=== PATIENT | female | born 1950 | race Caucasian/White ===

== ENCOUNTER 2019-12-09 11:09 | Observation (INO) ==
--- NOTE | 2019-11-13 15:05 | PAT Medication Instructions ---
Medication Instructions Date of Service November 13, 2019 Home Medications cholecalciferol (vitamin D3) 250 mcg PO QAM lactobacillus combination no.4 [Probiotic] 3,000 mmu cells PO HS multivitamin 1 cap PO QAM omega 7-xxv-tnd-fish oil [Fish Oil] 1 cap PO QAM oregano oil 1,500 mg PO QAM STOP taking 2 weeks before surgery If surgery is within 2 weeks, stop taking as soon as possible. omega 1-pwl-lpc-fish oil [Fish Oil] 1 cap PO QAM oregano oil 1,500 mg PO QAM DO NOT take the morning of surgery cholecalciferol (vitamin D3) 250 mcg PO QAM lactobacillus combination no.4 [Probiotic] 3,000 mmu cells PO HS multivitamin 1 cap PO QAM Other Notes If you have any questions please call us at [phone] or [phone] or [phone] or [phone]
--- NOTE | 2019-11-14 08:16 | History & Physical Report ---
Date of Service November 14, 2019 date of surgery: 12-09-19 Procedure: Right total knee replacement Assessment & Plan (1) Arthritis of right knee: Risks and benefits of procedure discussed in detail today, patient would like to proceed with a Right total knee replacement at [facility] as scheduled. will obtain medical clearance from Dr Hoff prior to surgery as well as obtain PATs at [facility]. Will place on ASA 81mg po bid x 1 month post op, f/u 2 weeks post op for routine post-operative care and x-ray, sooner if having any problems. will make arrangements for HHPT at the time of discharge. At this point in time, has failed conservative measures and would like to proceed with surgical intervention. The risks and benefits have been discussed including, but not limited to, risk of infection, nerve injury, stiffness, loss of motion, failure to improve, etc. Reasonable outcomes and options of treatment were discussed. An explanation of appropriate alternatives to the procedure that may be advantageous were discussed and their risks and benefits, as well as the risks and benefits of not proceeding with treatment. I offered to answer any additional inquiries concerning the treatment involved. All the patient's questions were answered. The patient is agreeable, understanding of the treatment plan and alternatives, and wishes to proceed with the treatment plan. History of Present Illness Chief Complaint: Right knee pain Primary Care Provider: Silas Hoff Ms Shannon is a 69 year old female who complains of right knee pain, presents for pre op eval prior to a right total knee replacement at [facility]. She presents with pain and stiffness on the right side. She states that the symptoms have been chronic non-traumatic. Currently the patient states that the symptoms are moderate-severe and is described as aching, sharp and throbbing. The symptoms are aggravated by ascending stairs, daily activities, descending stairs, driving, exercise, first steps while awake, jumping, kneeling, movement, repetitive activities, sleeping on the affected side, squatting, standing, walking and weight bearing. In addition to right knee pain the patient is also experiencing decreased mobility, difficulty bending, crepitus, difficulty going to sleep, instability, limping, nighttime awakening, pain, stiffness, tenderness and weakness. The patient has had a previous x-ray. Prior NSAIDs include ibuprofen. She has been treated with a corticosteroid injection on the right side. Allergies Allergy/AdvReac Type Severity Reaction Status Date / Time codeine Allergy Intermediate vomiting Verified 11/07/19 10:57 Sulfa (Sulfonamide Allergy Intermediate hives Verified 11/07/19 10:57 Antibiotics) Home Medications Home Medications Medication Instructions Recorded Confirmed Type cholecalciferol (vitamin D3) 250 mcg PO QAM 11/07/19 11/07/19 History [Vitamin D3] lactobacillus combination no.4 3,000 mmu cells PO HS 11/07/19 11/07/19 History [Probiotic] multivitamin 1 cap PO QAM 11/07/19 11/07/19 History omega 8-mfr-kxm-fish oil [Fish Oil] 1 cap PO QAM 11/07/19 11/07/19 History oregano oil 1,500 mg PO QAM 11/07/19 11/07/19 History Past Med/Surg History Medical History Chronic back pain Lyme disease Osteoarthritis PONV (postoperative nausea and vomiting) Pre-diabetes weight loss and diet and no meds Surgical History History of open reduction and internal fixation (ORIF) procedure left elbow History of total left knee replacement Hx of appendectomy Hx of hysterectomy Hx of tonsillectomy Social History Smoking Status: Never smoker Second Hand Exposure: No; Do You Dip or Chew Tobacco: No; Tobacco Cessation Education Requested by Patient: No Hx Alcohol Use: No Hx Substance Use: No Preferred Language: Syrian Communication Ability: Effective Theater Projectionist Required: No Beliefs That Will Affect Care: None Current Living Situation: Spouse Other Information That Helps Us Care for You: No Feels Safe at Home: Yes Safety Concerns: Feels Safe At This Time Review of Systems Review of Systems: All systems reviewed & are unremarkable except as noted in HPI & below Constitutional: no fever, no chills and no sweats Respiratory: no cough and no dyspnea Cardiovascular: no chest pain, no dyspnea and no orthopnea Gastrointestinal: no abdominal pain, no nausea and no vomiting Musculoskeletal: as per Subjective / HPI Physical Exam Physical Exam: Ht: 5ft 1in WT: 80.7kg BP: 138/86 Constitutional: WD/WN, vitals as above no acute distress Respiratory: normal respiratory effort, lungs clear to auscultation no respiratory distress, no labored breathing and does not use accessory muscles Cardiovascular: RRR, no murmur, no edema Gastrointestinal (Abdomen): normal bowel sounds, soft, nontender, no hepatosplenomegaly Musculoskeletal: Knee: + knee abnormal to inspection (Right knee- ), + effusion (+1 effusion), + limited ROM of knee (ROM 0/3/110), + knee ROM with crepitation, + joint line tenderness (medial joint line) and + Michael's sign positive; no deformity, no skin erythema, no ecchymosis, no valgus laxity, no varus laxity, anterior drawer test negative, Israel's sign negative and pivot shift test negative Results & Data Results & Data ([facility]) Diagnostic Findings Right Knee X-ray: Right knee series showing advanced degenerative changes to the right knee, narrowing of the medial compartment and patello-femoral joint with patellar spurring noted, findings showing joint space narrowing of the medial compartment and patello-femoral joint, osteophyte formation and subchondral sclerosis noted. overall varus alignment. no acute bony pathology noted.
--- NOTE | 2019-11-14 13:06 | Anesthesiology Consultation ---
Date of Service November 14, 2019 Assessment & Plan (1) Encounter for pre-operative examination: COVID Status: As of 11/13 assessment, patient denies travel to endemic area, known exposure/sick contacts, or symptoms of COVID19. Patient instructed that they and their household members must follow strict social distancing guidelines, wear a mask in public and avoid travel for 14 days prior to surgery. Preoperative COVID19 testing to be completed prior to surgery per surgeon's arrangements. Patient made aware to self-isolate as much as possible between COVID testing and surgery. BSG AM DOS Chart Review Chart Review: Acceptable Risk for Surgery (pending surgeon-ordered PCP clearance) and Patient seen in Pre Admission Testing Teaching & Discussion Instructed NPO after midnight before surgery, except medications with 15 cc of water. Medication instructions provided according to the PAT guidelines. History Surgery Operation Date: 12/09/19 11:55 Proposed Procedures p Right Total Knee Arthroplasty - Lamberto Roman DO Height/Weight Height: 5 ft 1 in Weight: 81.4 kg Allergies Allergy/AdvReac Type Severity Reaction Status Date / Time codeine Allergy Intermediate vomiting Verified 11/07/19 10:57 Sulfa (Sulfonamide Allergy Intermediate hives Verified 11/07/19 10:57 Antibiotics) Medications Home Medications Medication Instructions Recorded Confirmed Last Taken cholecalciferol (vitamin D3) 250 mcg PO QAM 11/07/19 11/07/19 Unknown [Vitamin D3] lactobacillus combination no.4 3,000 mmu cells PO HS 11/07/19 11/07/19 Unknown [Probiotic] multivitamin 1 cap PO QAM 11/07/19 11/07/19 Unknown omega 6-gkb-jty-fish oil [Fish Oil] 1 cap PO QAM 11/07/19 11/07/19 Unknown oregano oil 1,500 mg PO QAM 11/07/19 11/07/19 Unknown Past Medical History Medical History Chronic back pain Lyme disease Osteoarthritis PONV (postoperative nausea and vomiting) Pre-diabetes weight loss and diet and no meds; A1C up to 7.3% on pre op labs -- forwarded to PCP for follow-up. Exercise / Class Metabolic Activity II 4-5 Yardwork/Stairs/Walk up hill (Denies Cp or SOB with 1 FOS) Past Surgical History Surgical History History of open reduction and internal fixation (ORIF) procedure left elbow History of total left knee replacement Hx of appendectomy Hx of hysterectomy Hx of tonsillectomy Past Anesthesia History No Hx of Anesthesia Complications and No Family Hx of Anesthesia Complications History of PONV No Hx of Motion Sickness and History of PONV Social History Smoking Status: Never smoker Do You Dip or Chew Tobacco: No Hx Alcohol Use: No Hx Substance Use: No substance use type: does not use Review of Systems Pt denies any recent chest pain, shortness of breath, palpitations, cough, fever, URI, or uncontrolled acid reflux. Physical Exam Vital Signs BP: 117/77 P: 93bpm SPO2: 94% RA T: 98.2 F R: 16 ENMT Mouth: + dental restorations (crown rear L lower molar); no chipped teeth and no loose teeth Thyromental Distance: > or= 3.5 Finger Breadths (3.5) Mallampati Class: I Neck normal visual inspection; neck extension not limited Respiratory normal respiratory effort Auscultation: lungs clear to auscultation bilaterally Cardiovascular Rate/Rhythm: regular rate (borderline tachy) and regular rhythm Heart Sounds: no murmur Vessels: no carotid bruit Extremities: no edema Testing Laboratory Results 11/14/19 13:19 11/14/19 13:19 PT 10.8 Seconds (9.0-12.0) 11/14/19 13:19 INR 1.0 (0.9-1.1) 11/14/19 13:19 APTT 25.9 Seconds (21.0-31.0) 11/14/19 13:19 Hemoglobin A1c 7.3 % (4.5-5.6) H 11/14/19 13:19 Urine Color Yellow 11/14/19 Unknown Urine Appearance Clear (Clear) 11/14/19 Unknown Urine pH 5.0 (4.5-7.5) 11/14/19 Unknown Ur Specific Mason 1.018 (1.000-1.030) 11/14/19 Unknown Urine Protein Negative (Negative) 11/14/19 Unknown Urine Glucose (UA) Negative (Negative) 11/14/19 Unknown Urine Ketones Negative (Negative) 11/14/19 Unknown Urine Nitrite Negative (Negative) 11/14/19 Unknown Ur Leukocyte Esterase 1+ (Negative) H 11/14/19 Unknown Urine WBC (Auto) 10-30 /hpf (0-5) H 11/14/19 Unknown Urine RBC (Auto) 0-4 /hpf (0-4) 11/14/19 Unknown U Hyaline Cast (Auto) 0 /lpf (0-5) 11/14/19 Unknown U Epithel Cells (Auto) 0-5 /lpf (0-5) 11/14/19 Unknown Urine Bacteria (Auto) 3+ (Negative) H 11/14/19 Unknown Blood Type A Positive 11/14/19 13:19 Antibody Screen NEGATIVE 11/14/19 13:19 11/14/19 Unknown Urine Culture - Final Urine,Clean Catch Citrobacter koseri Citrobacter koseri#2 *Surgeon's office flagged re: uncontrolled glucose and + UA Electrocardiogram Date: 11/14/19 Findings: + NSR @ (88bpm) NSTWA. Compared to EKG from 06/25/15, NSTWA now evident in inferior leads, QT has lengthened. Chest X-Ray Date: 11/14/19 Findings: + NAD
--- NOTE | 2019-11-14 13:42 | XRay Report ---
XR chest Pre-admission PA/Lat HISTORY: Preop. COMPARISON: Chest 06/25/2015. FINDINGS: The lungs are clear. Cardiac silhouette is normal in size. No pleural effusions. No pneumot horax. IMPRESSION: No acute process. ACT 112: Negative or not required by law. Electronically signed by: Fredy Martin M.D. 11/14/2019 1:40 PM
[2019-11-14 15:01] LABS: Basophils # (auto) 0.04 K/uL (0-0.2); Basophils % (auto) 0.5 %; Eosinophils # (auto) 0.31 K/uL (0-0.5); Eosinophils % (auto) 3.6 %; Hematocrit (blood only) 42.5 % (37-47); Hemoglobin 14.4 g/dL (12.0-16.0); Immature Granulocytes # (auto) 0.04 K/uL (0.00-0.02); Immature Granulocytes % (auto) 0.5 %; Lymphocytes # (auto) 2.54 K/uL (1.2-3.4); Lymphocytes % (auto) 29.6 %; Mean Corpuscular Hemoglobin 29.3 pg (25-34); Mean Corpuscular Hgb Conc 33.9 g/dL (32-36); Mean Corpuscular Volume 86.4 fL (80-100); Mean Platelet Volume 11.1 fL (7.4-10.4); Monocytes # (auto) 0.25 K/uL (0.11-0.59); Monocytes % (auto) 2.9 %; Neutrophils # (auto) 5.39 K/uL (1.4-6.5); Neutrophils % (auto) 62.9 %; Platelet Count 320 K/uL (130-400); RDW Coefficient of Variation 13.9 % (11.5-14.5); RDW Standard Deviation 43.9 fL (36.4-46.3); Red Blood Count 4.92 M/uL (4.2-5.4); White Blood Count 8.57 K/uL (4.8-10.8)
[2019-11-14 15:08] LABS: BUN Creatinine Ratio 16.6 (10-20); Calcium 9.3 mg/dl (8.5-10.1); Creatinine Clr Calc Pharmacy 48.9 ml/min; Est GFR (African American) 64.1; Est GFR (Non-African American) 55.3; Potassium 3.9 mmol/L (3.5-5.1)
[2019-11-14 15:11] LABS: Partial Thromboplastin Ratio 0.9; Partial Thromboplastin Time 25.9 Seconds (21.0-31.0); Prothrombin Time 10.8 Seconds (9.0-12.0)
[2019-11-14 15:12] LABS: Appearance Urine Clear (Clear); Bacteria Urine Automated 3+ (Negative); Bilirubin Urine Negative (Negative); Blood Urine Negative (Negative); Cast Urine Automated 0 /lpf (0-5); Color Urine Yellow; Epithelial Cell Urine Auto 0-5 /lpf (0-5); Glucose Urine UA Negative (Negative); Ketones Urine Negative (Negative); Leukocyte Esterase Urine 1+ (Negative); Nitrite Urine Negative (Negative); Protein Urine Negative (Negative); RBC Urine Automated 0-4 /hpf (0-4); Specific Gravity Urine 1.018 (1.000-1.030); Urobilinogen Urine Negative (Negative)
--- NOTE | 2019-11-14 16:12 | Electrocardiogram Report ---
Test Reason : Blood Pressure : / mmHG Vent. Rate : 088 BPM Atrial Rate : 088 BPM P-R Int : 178 ms QRS Dur : 076 ms QT Int : 448 ms P-R-T Axes : 067 083 078 degrees QTc Int : 542 ms Normal sinus rhythm Nonspecific T wave abnormality Abnormal ECG When compared with ECG of 25-JUN-2015 12:02, Nonspecific T wave abnormality now evident in Inferior leads QT has lengthened Confirmed by Tyson Aguirre ([id number]) on 11/14/2019 4:12:02 PM Referred By: Lamberto Roman Confirmed By:Tyson Aguirre
[2019-11-15 05:49] LABS: Estimated Average Glucose 163 mg/dl; Hemoglobin A1C 7.3 % (4.5-5.6)
[~2019-12-09 11:09] MED LIST: ACETAMINOPHEN 500 MG TAB PO SCH; BUPIVACAINE 0.5 % 5 MG/1 ML PF 10ML VIAL ONE; CEFAZOLIN 2000MG 2,000 MG/15 ML SYR IV SCH; FAMOTIDINE 20 MG TAB PO SCH; GABAPENTIN 300 MG CAP PO SCH; METOCLOPRAMIDE HCL 10 MG TABLET PO SCH; ROPIVACAINE 0.5% HCL/PF 150 MG, BUPIVACAINE 0.5% MPF 30 ML, EPINEPHrine 30MG/30ML (OR U... INSTIL SCH; TRANEXAMIC ACID 1,000 MG **IV Intra-op IV SCH; TRANEXAMIC ACID 1,000 MG **IV Pre-op IV SCH; dexAMETHasone 4 MG TAB PO SCH
[2019-12-09] MEDS ORDERED: ONDANSETRON INJ 2 MG/ML 2 ML VIAL ONE (11:18)
[2019-12-09] MEDS ORDERED: PROPOFOL IV EMULSION 10 MG/ML 20 ML VIAL IV ONE (11:18)
[2019-12-09] MEDS ORDERED: LIDOCAINE HCL 2% 2 ML VIAL/AMP(20MG/ML) INFIL ONE (11:18)
[2019-12-09] MEDS ORDERED: fentaNYL citrate 100 MCG/2 ML VIAL ONE ×2 (11:18→13:40)
[2019-12-09] MEDS ORDERED: MIDAZOLAM HCL 1 MG/ML 2ML VIAL ONE (11:18)
--- NOTE | 2019-12-09 11:44 | History & Physical Bridge Note ---
Date of Service December 09, 2019 History & Physical Bridge Note I have examined the patient, reviewed the History & Physical and in the interval since the performance of the History & Physical I have noted the following changes of clinical significance: no changes noted
[2019-12-09] MEDS ORDERED: ORTHO JOINT ANESTHETIC ONE (11:49)
[2019-12-09] MEDS ORDERED: BACITRACIN INJ 50,000 UNIT VIAL ONE (11:49)
[2019-12-09] MEDS ORDERED: fentaNYL citrate 100 MCG/2 ML VIAL IV PRN (12:23)
[2019-12-09] MEDS ORDERED: ONDANSETRON INJ 2 MG/ML 2 ML VIAL IV PRN ×2 (12:23→17:04)
[2019-12-09] MEDS ORDERED: ATROPINE SULFATE 0.1 MG/ML 10ML SYR IV PRN (12:23)
[2019-12-09] MEDS ORDERED: ePHEDrine sulfate 50 MG/ML AMP IV PRN (12:23)
[2019-12-09] MEDS: LR 500ML BOLUS, THEN 15ML/HR IV SCH (12:29)
--- NOTE | 2019-12-09 14:04 | Operative Report ---
Post Operative Report Pre & Post Diagnosis Operation Date: 12/09/19 12:45 Pre-Op Diagnosis: Osteoarthritis of Right Knee Post-Op Diagnosis: Osteoarthritis of Right Knee I identified the patient and participated in the time-out.: Yes Procedure Operation Date: 12/09/19 12:45 Actual Procedures p Right Total Knee Arthroplasty(Right) utilizing [employer] journey 2 patient matched total knee arthroplasty size 4 femur to tibia 13 polyethylene 29 oval patella- Lamberto Roman DO Surgeon Lamberto Roman DO Meal Grinder Tender JOE Story Estimated Blood Loss 5 Findings Consistent with Post-Op Diagnosis Patient presents with severe end-stage tricompartmental degenerative joint disease subchondral cystic changes marginal osteophytes varus alignment with eburnated [id number] moderate to large effusion Specimens Bone and cartilage Drains Medium bore Hemovac Anesthesia Type MAC Spinal Regional Complications none Disposition Accompanied Patient To Recovery: No Disposition: Recovery Room Indications Patient presents for right total knee arthroplasty after failed attempted conservative management clinic physical therapy anti-inflammatories relative rest activity modification corticosteroid injection Visco supplementation the above intraoperative findings are noted time surgery Description of Procedure After proper prepping and draping of the Right lower extremity anterior midline incision was made over the region of the extensor extensor mechanism after meticulous hemostasis was obtained and maintained in subcutaneous tissues a medial parapatellar incision was made The patella was subluxed lateralward the medial lateral gutter were cleaned from any hypertrophic synovitis and scar tissue of the distal femoral block was placed and the distal femoral osteotomy cut was made subsequently the chamfers anterior and posterior osteotomy cuts were made utilizing the 4-in-1 block the tibia was subsequently subluxed anteriorward medial and ateral meniscal remnants were excised in their entirety remnants of the anterior and posterior cruciate ligaments were excised in their entirety excellent exposure of the proximal tibia was obtained the tibial osteotomy guide was placed on the proximal tibial osteotomy cut was made once again the knee was irrigated with copious amounts of sterile saline solution the patella was subsequently everted lateralward thickened scar tissue around the patella was removed the patella was subsequently cut utilizing a freehand technique and was drilled prepared for final preparation and placement of patella socially flexion-extension gaps were checked and the equal and symmetric trials were placed to the appropriate femoral and tibial trials with poly-spacer being placed for equal flexion and extension gaps and full range of motion including extension to 0 and flexion to 140 the trial components after having been taken to recovery range of motion was subsequently removed meticulous hemostasis was obtained and maintained subsequently a knee block injection of joint cocktail including ropivacaine 0.5% 150 mg. Bupivacaine 0.5% epinephrine 1-200,030 mL's toradol 30 mg dexamethasone 4 mg ketamine 10 mg clonidine 100 micrograms normal saline solution 30 mg was infiltrated into the soft tissues of the posterior knee medial lateral gutters and periosteal synovium special attention was paid to protect neurovascular structures at all times subsequently trial components having been removed the knee was irrigated with sterile saline solution. debris was removed the proximal tibia was subsequently prepared and was made ready for the placement of the tibial component tibial component was also cemented and tamped into position the femoral component was subsequently placed and cemented in the position the patellar component was subsequently cemented in position because hemostasis once again obtained and maintained wound having been thoroughly irrigated with debridement and debridement lavage was performed as well as a medial parapatellar incision closed with #1 Vicryl in interrupted fashion subcutaneous was closed with #2 Vicryl skin was closed with skin clips. PA-C was necessary for prepping and drapping as well as wound closure of deep fascia Sub cutaneous tissue and skin and was necessary for the case. A sterile compressive dressing was placed patient was taken to recovery in stable condition of report dictated by Abel I attest to the content of the Intraoperative Record and any orders documented therein. Any exceptions are noted below. I attest to the content of the Intraoperative Record and any orders documented therein. Any exceptions are noted below.
--- NOTE | 2019-12-09 15:26 | XRay Report ---
TWO VIEWS RIGHT KNEE CLINICAL HISTORY: Postoperative examination. FINDINGS: AP and crosstable lateral portable views of the right knee are obtained. A right knee arthr oplasty is in near anatomic alignment. There has been undersurface remodeling of the patella. No acut e fracture is seen. There are expected postoperative changes around the knee including skin clips, a surgical drain, soft tissue edema, and subcutaneous gas. IMPRESSION: Expected postoperative changes status post right knee arthroplasty. No acute fracture is seen. ACT 112: Negative or not required by law. Electronically signed by: Jun Keen M.D. 12/09/2019 3:25 PM
--- NOTE | 2019-12-09 16:47 | Anesthesiology Progress Note ---
Date of Service December 09, 2019 Anesthesia Post Procedure Vital Signs Vital Signs: Temp Pulse Pulse Resp BP Pulse Ox 12/09/19 16:45 36.7 C 90 15 146/88 H 94 12/09/19 16:35 36.7 C 93 H 14 152/91 H 95 12/09/19 16:25 36.7 C 93 H 11 L 139/85 93 12/09/19 16:15 36.7 C 97 H 13 125/86 94 12/09/19 16:05 36.7 C 96 H 18 142/84 H 94 12/09/19 15:55 90 12 139/89 94 12/09/19 15:45 93 H 13 149/85 H 93 12/09/19 15:35 91 H 13 144/95 H 93 12/09/19 15:25 90 10 L 149/85 H 91 12/09/19 15:15 98 H 20 144/65 H 92 12/09/19 15:05 93 H 12 148/91 H 93 12/09/19 14:55 96 H 12 144/78 H 94 12/09/19 14:48 36.7 C 103 H 14 143/79 H 93 12/09/19 12:44 78 18 171/98 H 99 12/09/19 12:00 36.8 C 85 18 179/104 H 96 Pain Intensity Right Leg: Pain Intensity: 0 Transfer of Care Handoff Completed per policy Notes Mental Status: alert / awake / arousable and participated in evaluation Patient Amnestic to Procedure: Yes Nausea / Vomiting: adequately controlled Pain: adequately controlled Airway Patency, RR, SpO2: stable & adequate BP & HR: stable & adequate Hydration State: stable & adequate Neuraxial Anesthesia: was administered and sensory block is resolving Anesthetic Complications: no major complications apparent
[2019-12-09] MEDS ORDERED: NALOXONE HCL 0.4 MG/1 ML VIAL/CARP IV PRN (17:04)
[2019-12-09] MEDS ORDERED: METOCLOPRAMIDE HCL INJ 5 MG/ML 2 ML VIAL IV PRN (17:04)
[2019-12-09] MEDS ORDERED: MAGNESIUM HYDROXIDE SUSP 30 ML UDC PO PRN (17:04)
[2019-12-09] MEDS ORDERED: bisacodyL 10 MG SUPP PR PRN (17:04)
[2019-12-09] MEDS ORDERED: OXYCODONE HCL IR 5 MG TAB (IMMEDIATE RELEASE) PO PRN (17:04)
[2019-12-09] MEDS ORDERED: HYDROmorphone INJ 1 MG/ML SYRINGE IV PRN (17:04)
[2019-12-09] MEDS ORDERED: SCOPOLAMINE 1.5 MG TDSY TD SCH (18:00)
[2019-12-09] MEDS: SODIUM CHLORIDE 0.9% 1000ML 1,000 ML IV SCH (18:17)
[2019-12-09] MEDS: KETOROLAC TROMETHAMINE 15 MG/ML VIAL IV SCH (18:18)
[2019-12-09] MEDS ORDERED: TRAMADOL HCL 50 MG TABLET PO PRN (18:33)
[2019-12-09] MEDS ORDERED: SENNA 8.6 MG TAB PO SCH (21:00)
[2019-12-09] MEDS: CEFAZOLIN 2000MG 2,000 MG/15 ML SYR IV SCH (21:22)
[2019-12-09] MEDS: ACETAMINOPHEN 500 MG TAB PO SCH (21:23)
[2019-12-09] MEDS: ASPIRIN 81 MG ECTAB PO SCH (21:24)
[2019-12-09] MEDS: DOCUSATE SODIUM 100 MG CAP PO SCH (21:24)
[2019-12-10] MEDS: CHECK SCOPOLAMINE PATCH PLACEMENT SCH ×2 (00:40→08:15)
[2019-12-10] MEDS: KETOROLAC TROMETHAMINE 15 MG/ML VIAL IV SCH ×3 (00:42→11:04)
[2019-12-10] MEDS: SODIUM CHLORIDE 0.9% 1000ML 1,000 ML IV SCH (03:58)
[2019-12-10 05:53] LABS: Hemoglobin 12.4 g/dL (12.0-16.0); Mean Corpuscular Hemoglobin 29.5 pg (25-34); Mean Corpuscular Hgb Conc 34.4 g/dL (32-36); Mean Corpuscular Volume 85.7 fL (80-100); Mean Platelet Volume 10.2 fL (7.4-10.4); Platelet Count 301 K/uL (130-400); RDW Coefficient of Variation 14.1 % (11.5-14.5); RDW Standard Deviation 44.1 fL (36.4-46.3); White Blood Count 22.23 K/uL (4.8-10.8)
[2019-12-10] MEDS: CEFAZOLIN 2000MG 2,000 MG/15 ML SYR IV SCH (06:04)
[2019-12-10] MEDS: ACETAMINOPHEN 500 MG TAB PO SCH ×2 (06:05→14:35)
[2019-12-10 06:19] LABS: BUN Creatinine Ratio 15.9 (10-20); Calcium 8.7 mg/dl (8.5-10.1); Est GFR (African American) 75.6; Est GFR (Non-African American) 65.2; Potassium 4.4 mmol/L (3.5-5.1)
[2019-12-10] MEDS: ASPIRIN 81 MG ECTAB PO SCH (08:15)
[2019-12-10] MEDS: DOCUSATE SODIUM 100 MG CAP PO SCH (08:16)
[2019-12-10] MEDS ORDERED: MULTIVITAMIN TAB PO SCH (09:00)
--- NOTE | 2019-12-10 12:43 | Orthopedic Progress Note ---
Date of Service December 10, 2019 Assessment & Plan (1) History of total right knee replacement: POD #1 s/p Right TKA pt/ot dvt proph with JOSE MIGUEL/SCD/ASA plan for d/c home with HHPT later today Admission and Anticipated Discharge Date Admission Date: December 09, 2019 Subjective POD #1 s/p Right TKA Review of Systems Constitutional: no fever, no chills and no sweats Respiratory: no cough and no dyspnea Cardiovascular: no chest pain and no dyspnea Gastrointestinal: no abdominal pain, no nausea and no vomiting Physical Exam Physical Exam: Vital Signs Temp 36.6 C 12/10/19 11:32 Pulse 77 12/10/19 11:32 Resp 18 12/10/19 11:32 BP 129/79 12/10/19 11:32 Pulse Ox 94 12/10/19 11:32 Intake & Output 12/09/19 12/10/19 12/10/19 18:59 06:59 18:59 Intake Total 705 / 2526.667 1821.667 / 2526.66 7 Output Total 5 / 1255 1250 / 1255 Balance 700 / 1271.667 571.667 / 1271.667 Weight 81.4 kg 81.4 kg Intake: IV 700 / 1671.667 971.667 / 1671.667 Lr 1,000 ml @ 15 mls/hr IV . 600 / 600 Q24H [facility] Rx#:[id number] Nss 1000ML 1,0 00 ml @ 100 mls/ 971.667 / 971.667 hr IV .Q10H SC H Rx#:[id number] TRANEXAMIC ACI D / 0.7% NACL 1, 100 / 100 000 mg In 100 ml @ 600 mls/hr IV TODAY@0600 [facility] Rx#:[id number] IV Perioperative 5 / 5 Oral 850 / 850 Output: Urine 1000 / 1000 Estimated Blood Loss 5 / 5 Drain Output 250 / 250 Right Knee Hem ovac #1 250 / 250 Other: # Unmeasured Voi ds 1 Constitutional: WD/WN, vitals as above no acute distress Musculoskeletal: Right Leg: NVDI, calf SNT, negative alina sign. DP palpable, able to wiggle toes/ankle movement without difficulty. dressing clean dry and intact. Results & Data ([facility]) Vital Signs (Past 12 Hours) Vital Signs Temp Pulse Resp BP BP Pulse Ox 12/10/19 11:32 36.6 C 77 18 129/79 94 12/10/19 07:06 36.5 C 126 H 18 105/74 95 12/10/19 03:55 36.4 C L 82 14 120/74 94 Laboratory Results Laboratory Results WBC 22.23 K/uL (4.8-10.8) H 12/10/19 05:27 RBC 4.20 M/uL (4.2-5.4) 12/10/19 05:27 Hgb 12.4 g/dL (12.0-16.0) 12/10/19 05:27 Hct 36.0 % (37-47) L 12/10/19 05:27 MCV 85.7 fL (80-100) 12/10/19 05:27 MCH 29.5 pg (25-34) 12/10/19 05:27 MCHC 34.4 g/dL (32-36) 12/10/19 05:27 RDW Std Deviation 44.1 fL (36.4-46.3) 12/10/19 05:27 RDW Coeff of Albina 14.1 % (11.5-14.5) 12/10/19 05:27 Plt Count 301 K/uL (130-400) 12/10/19 05:27 MPV 10.2 fL (7.4-10.4) 12/10/19 05:27 Immature Gran % (Auto) 0.5 % 11/14/19 13:19 Neut % (Auto) 62.9 % 11/14/19 13:19 Lymph % (Auto) 29.6 % 11/14/19 13:19 [place] % (Auto) 2.9 % 11/14/19 13:19 Eos % (Auto) 3.6 % 11/14/19 13:19 Baso % (Auto) 0.5 % 11/14/19 13:19 Neut # (Auto) 5.39 K/uL (1.4-6.5) 11/14/19 13:19 Lymph # (Auto) 2.54 K/uL (1.2-3.4) 11/14/19 13:19 [place] # (Auto) 0.25 K/uL (0.11-0.59) 07/24/20 13:19 Eos # (Auto) 0.31 K/uL (0-0.5) 11/14/19 13:19 Baso # (Auto) 0.04 K/uL (0-0.2) 11/14/19 13:19 Immature Gran # (Auto) 0.04 K/uL (0.00-0.02) H 11/14/19 13:19 PT 10.8 Seconds (9.0-12.0) 11/14/19 13:19 INR 1.0 (0.9-1.1) 11/14/19 13:19 APTT 25.9 Seconds (21.0-31.0) 11/14/19 13:19 PTT Ratio 0.9 11/14/19 13:19 Sodium 141 mmol/L (136-145) 12/10/19 05:27 Potassium 4.4 mmol/L (3.5-5.1) 12/10/19 05:27 Chloride 113 mmol/L (98-107) H 12/10/19 05:27 Carbon Dioxide 21 mmol/L (21-32) 12/10/19 05:27 Anion Gap 7.0 (3-11) 12/10/19 05:27 BUN 14 mg/dl (7-18) 12/10/19 05:27 Creatinine 0.89 mg/dl (0.6-1.2) 12/10/19 05:27 Est Cr Clr Drug Dosing 56.0 ml/min 12/10/19 05:27 Est GFR ( Amer) 75.6 12/10/19 05:27 Est GFR (Non-Af Amer) 65.2 12/10/19 05:27 BUN/Creatinine Ratio 15.9 (10-20) 12/10/19 05:27 Glucose 179 mg/dl (70-99) H 12/10/19 05:27 POC Glucose 100 mg/dl (70-99) H 12/09/19 12:01 Estimat Average Glucose 163 mg/dl 11/14/19 13:19 Hemoglobin A1c 7.3 % (4.5-5.6) H 11/14/19 13:19 Calcium 8.7 mg/dl (8.5-10.1) 12/10/19 05:27 Albumin 3.5 gm/dl (3.4-5.0) 11/14/19 13:19 Urine Color Yellow 11/14/19 Unknown Urine Appearance Clear (Clear) 11/14/19 Unknown Urine pH 5.0 (4.5-7.5) 11/14/19 Unknown Ur Specific [place] 1.018 (1.000-1.030) 11/14/19 Unknown Urine Protein Negative (Negative) 11/14/19 Unknown Urine Glucose (UA) Negative (Negative) 11/14/19 Unknown Urine Ketones Negative (Negative) 11/14/19 Unknown Urine Blood Negative (Negative) 11/14/19 Unknown Urine Nitrite Negative (Negative) 11/14/19 Unknown Urine Bilirubin Negative (Negative) 11/14/19 Unknown Urine Urobilinogen Negative (Negative) 11/14/19 Unknown Ur Leukocyte Esterase 1+ (Negative) H 11/14/19 Unknown Urine WBC (Auto) 10-30 /hpf (0-5) H 11/14/19 Unknown Urine RBC (Auto) 0-4 /hpf (0-4) 11/14/19 Unknown U Hyaline Cast (Auto) 0 /lpf (0-5) 11/14/19 Unknown U Epithel Cells (Auto) 0-5 /lpf (0-5) 11/14/19 Unknown Urine Bacteria (Auto) 3+ (Negative) H 11/14/19 Unknown Hepatitis C Ab Screen Neg (Neg) 12/10/19 05:27 Blood Type A Positive 11/14/19 13:19 Antibody Screen NEGATIVE 11/14/19 13:19
--- NOTE | 2019-12-11 07:40 | Discharge Summary ---
Date of Service date of admission December 09, 2019 date of discharge: 12-10-19 Admission HPI Per Admitting Provider Ms Shannon is a 69 year old female who complains of right knee pain, presents for pre op eval prior to a right total knee replacement at [facility]. She presents with pain and stiffness on the right side. She states that the symptoms have been chronic non-traumatic. Currently the patient states that the symptoms are moderate-severe and is described as aching, sharp and throbbing. The symptoms are aggravated by ascending stairs, daily activities, descending stairs, driving, exercise, first steps while awake, jumping, kneeling, movement, repetitive activities, sleeping on the affected side, squatting, standing, walking and weight bearing. In addition to right knee pain the patient is also experiencing decreased mobility, difficulty bending, crepitus, difficulty going to sleep, instability, limping, nighttime awakening, pain, stiffness, tenderness and weakness. The patient has had a previous x-ray. Prior NSAIDs include ibuprofen. She has been treated with a corticosteroid injection on the right side. Principal Diagnosis right knee arthritis Discharge Exam Vital Signs Temp 36.6 C 12/10/19 13:39 Pulse 77 12/10/19 13:39 Resp 18 12/10/19 13:39 BP 105/74 12/10/19 13:39 Pulse Ox 94 12/10/19 13:39 Intake & Output 12/10/19 12/11/19 12/11/19 18:59 06:59 18:59 Weight 81.4 kg Constitutional WD/WN, vitals as above no acute distress Musculoskeletal Right Knee: NVDI, calf SNT, negative alina sign. DP palpable, able to wiggle toes/ankle movement without difficulty. Discharge Data Allergies Allergy/AdvReac Type Severity Reaction Status Date / Time codeine Allergy Intermediate vomiting Verified 12/09/19 11:53 Sulfa (Sulfonamide Allergy Intermediate hives Verified 12/09/19 11:53 Antibiotics) Consultations 12/09/19 17:04 Consult Case Management - Discharge Planning Routine Procedures Performed Operation Date: 12/09/19 12:45 Actual Procedures p Right Total Knee Arthroplasty(Right) - Lamberto Roman DO Ordered Studies 12/09/19 05:00 US - OR guided needle placemen Routine Hospital Course (1) History of total right knee replacement: POD #1 s/p Right TKA pt/ot dvt proph with JOSE MIGUEL/SCD/ASA plan for d/c home with HHPT later today Laboratory Results WBC 22.23 K/uL (4.8-10.8) H 12/10/19 05:27 RBC 4.20 M/uL (4.2-5.4) 12/10/19 05:27 Hgb 12.4 g/dL (12.0-16.0) 12/10/19 05:27 Hct 36.0 % (37-47) L 12/10/19 05:27 MCV 85.7 fL (80-100) 12/10/19 05:27 MCH 29.5 pg (25-34) 12/10/19 05:27 MCHC 34.4 g/dL (32-36) 12/10/19 05:27 RDW Std Deviation 44.1 fL (36.4-46.3) 12/10/19 05:27 RDW Coeff of Albina 14.1 % (11.5-14.5) 12/10/19 05:27 Plt Count 301 K/uL (130-400) 12/10/19 05:27 MPV 10.2 fL (7.4-10.4) 12/10/19 05:27 Immature Gran % (Auto) 0.5 % 11/14/19 13:19 Neut % (Auto) 62.9 % 11/14/19 13:19 Lymph % (Auto) 29.6 % 11/14/19 13:19 [place] % (Auto) 2.9 % 11/14/19 13:19 Eos % (Auto) 3.6 % 11/14/19 13:19 Baso % (Auto) 0.5 % 11/14/19 13:19 Neut # (Auto) 5.39 K/uL (1.4-6.5) 11/14/19 13:19 Lymph # (Auto) 2.54 K/uL (1.2-3.4) 11/14/19 13:19 [place] # (Auto) 0.25 K/uL (0.11-0.59) 11/14/19 13:19 Eos # (Auto) 0.31 K/uL (0-0.5) 11/14/19 13:19 Baso # (Auto) 0.04 K/uL (0-0.2) 11/14/19 13:19 Immature Gran # (Auto) 0.04 K/uL (0.00-0.02) H 11/14/19 13:19 PT 10.8 Seconds (9.0-12.0) 11/14/19 13:19 INR 1.0 (0.9-1.1) 11/14/19 13:19 APTT 25.9 Seconds (21.0-31.0) 11/14/19 13:19 PTT Ratio 0.9 11/14/19 13:19 Sodium 141 mmol/L (136-145) 12/10/19 05:27 Potassium 4.4 mmol/L (3.5-5.1) 12/10/19 05:27 Chloride 113 mmol/L (98-107) H 12/10/19 05:27 Carbon Dioxide 21 mmol/L (21-32) 12/10/19 05:27 Anion Gap 7.0 (3-11) 12/10/19 05:27 BUN 14 mg/dl (7-18) 12/10/19 05:27 Creatinine 0.89 mg/dl (0.6-1.2) 12/10/19 05:27 Est Cr Clr Drug Dosing 56.0 ml/min 12/10/19 05:27 Est GFR ( Amer) 75.6 12/10/19 05:27 Est GFR (Non-Af Amer) 65.2 12/10/19 05:27 BUN/Creatinine Ratio 15.9 (10-20) 12/10/19 05:27 Glucose 179 mg/dl (70-99) H 12/10/19 05:27 POC Glucose 100 mg/dl (70-99) H 12/09/19 12:01 Estimat Average Glucose 163 mg/dl 11/14/19 13:19 Hemoglobin A1c 7.3 % (4.5-5.6) H 11/14/19 13:19 Calcium 8.7 mg/dl (8.5-10.1) 12/10/19 05:27 Albumin 3.5 gm/dl (3.4-5.0) 11/14/19 13:19 Urine Color Yellow 11/14/19 Unknown Urine Appearance Clear (Clear) 11/14/19 Unknown Urine pH 5.0 (4.5-7.5) 11/14/19 Unknown Ur Specific [place] 1.018 (1.000-1.030) 11/14/19 Unknown Urine Protein Negative (Negative) 11/14/19 Unknown Urine Glucose (UA) Negative (Negative) 11/14/19 Unknown Urine Ketones Negative (Negative) 11/14/19 Unknown Urine Blood Negative (Negative) 11/14/19 Unknown Urine Nitrite Negative (Negative) 11/14/19 Unknown Urine Bilirubin Negative (Negative) 11/14/19 Unknown Urine Urobilinogen Negative (Negative) 11/14/19 Unknown Ur Leukocyte Esterase 1+ (Negative) H 11/14/19 Unknown Urine WBC (Auto) 10-30 /hpf (0-5) H 11/14/19 Unknown Urine RBC (Auto) 0-4 /hpf (0-4) 11/14/19 Unknown U Hyaline Cast (Auto) 0 /lpf (0-5) 11/14/19 Unknown U Epithel Cells (Auto) 0-5 /lpf (0-5) 11/14/19 Unknown Urine Bacteria (Auto) 3+ (Negative) H 11/14/19 Unknown Hepatitis C Ab Screen Neg (Neg) 12/10/19 05:27 Blood Type A Positive 11/14/19 13:19 Antibody Screen NEGATIVE 11/14/19 13:19 Total Time Total Time Spent Total Time Spent (In Minutes): 20 Total Time Includes: Examination of the Patient, Discharge Planning and Medication Reconciliation Discharge Plan Discharge Items Patient Disposition: Home - Home Health Services Reason For Visit: Osteoarthritis of Right Knee Discharge Diagnosis: Right total knee replacement Condition on Discharge: Good Activity: Per Instructions section Lifting: Wait until after follow-up appointment Weightbearing Comment: WBAT with walker Non-emergency contact: Surgeon Call non-emergency contact if: you have any medication questions, your temperature is above 101, your wound has increased redness, your wound has increased drainage and your wound pain has increased Follow-up/Referrals: Silas Hoff [Primary Care Provider] - Diet: Regular Addtl Attending Provider Instructions: ACTIVITY RECOMMENDATIONS: SELF CARE INSTRUCTIONS AFTER TOTAL KNEE REPLACEMENT A. You may need to continue a physical therapy program after discharge from the hospital. There are several options available to you. Your doctor will assist you in selecting the best one for you. 1. An out-patient facility 2 to 3 times a week for therapy or home therapy. 2. Continue working on all exercises taught to you in the hospital. Your goals should be to increase bending of your knee to 90 degrees and beyond and to fully straighten your knee. B. You may progress at your own pace from walking with a walker or crutches to a cane; then to no assistive devices. C. Make walking a part of your daily routine. Be up as much as comfortable with rest periods throughout the day. Rest with leg elevation is very important. Use the ice wrap frequently for the first 3-4 weeks. D. There are no restrictions on activities. You may ride in a car, shop, participate in classification clerk and all social activities. E. Wear the long elastic stockings (JOSE MIGUEL hose) 20 hours a day for 2 weeks after surgery. They can be removed several times a day for laundering and for a bath. F. You may shower, no tub baths until cleared by your doctor. SPECIAL CARE INSTRUCTIONS: VERY IMPORTANT TO READ AND REVIEW A. There are a few signs you need to watch for after you are home. Call [facility] if you notice any of the followin. Increased severe knee pain. Some pain is expected especially when you exercise. 2. Increased swelling in your leg or knee; pain or swelling of the calf muscle in either lower leg. 3. Any fluid drainage from the incision. 4. Shortness of breath or chest pain. B. Please call [facility] at if you have any concerns or questions about your operation or recovery. The doctor or his nurse will return your call promptly. C. You must take antibiotics before dental work, bladder, bowel or other surgery. Your doctor will provide you with a permanent care to carry describing this precaution. IMPORTANT: * REMEMBER TO TAKE ASPIRIN, 81 MG, TWICE DAILY FOR 4 WEEKS UNLESS OTHERWISE DIRECTED. THIS IS YOUR BLOOD THINNER. * HIGH RISK PATIENTS MAY BE PRESCRIBED A STRONGER BLOOD THINNER. THIS WILL BE PROVIDED AT DISCHARGE. * CALL IF INCREASED PAIN, REDNESS, DRAINAGE OR FEVER GREATER THAT 101. * WEAR JOSE MIGUEL HOSE 20 HOURS PER DAY FOR 2 WEEKS. * JOI Dressing- This is a large suction dressing covering your incision. This will help pull any excess drainage from the wound and allow your incision to heal properly. You may shower with this if you can keep the unit outside of the shower. If any bleeding or leakage is noted please call your doctor's office. This will remain on your incision for 7 days and then should be removed. This can be done yourself or by the home nursing staff if applicable. The entire unit is disposable once removed. Once removed, keep incision clean and dry. If redness or drainage is noted, please call your surgeon. IF INCISION IS LEAKING THROUGH DRESSING, CALL THE OFFICE . FOLLOW UP VISIT: If appointment is not already scheduled: Please call [facility] to make a follow-up appointment for 2 weeks after your surgery at . Pending Studies at Discharge: No Stand-Alone Forms: [facility] [employer], Smoking Cessation Medications and DC Order Prescriptions: New aspirin 81 mg Tablet,Delayed Release (Dr/Ec) 81 mg PO BID 30 Days Qty: 60 RF: 0 acetaminophen 500 mg Tablet 1,000 mg PO Q8 21 Days Qty: 126 RF: 0 oxycodone 5 mg Tablet 5 - 10 mg PO Q6H PRN (Reason: pain) Qty: 30 RF: 0 docusate sodium 100 mg Capsule 100 mg PO BID 10 Days Qty: 20 RF: 0 cefadroxil 500 mg capsule 500 mg PO BID 10 Days Qty: 20 RF: 0 tramadol 50 mg Tablet 50 mg PO Q6H PRN (Reason: pain) Qty: 30 RF: 0 Continued multivitamin Capsule 1 cap PO QAM RF: 0 cholecalciferol (vitamin D3) [Vitamin D3] 125 mcg (5,000 unit) Tablet 250 mcg PO QAM RF: 0 Probiotic 3 billion cell Capsule 3,000 mmu cells PO HS RF: 0 Discontinued oregano oil 1,500 mg Capsule 1,500 mg PO QAM RF: 0 omega 5-iwt-wes-fish oil [Fish Oil] 1,200 (144-216) mg Capsule 1 cap PO QAM RF: 0 diclofenac sodium [Voltaren] 1 % Gel 2 g TOPICAL QID RF: 0 Discharge Orders: Discharge Order (Routine); Ordered 12/10/19 Ordered By: Deejay Avelar Admission Data Admit Date/Time: 12/09/19 14:45 Attending Provider: Lamberto Roman Admit Provider: Lamberto Roman Primary Care Provider: Silas Hoff Other Providers: Fermin Haro Healt Other Interventions: Discharge Summary Assessment (RN) Last Done: 12/10/19 13:39
== END 2019-12-10 15:31 | disposition home health service (06) ==
LOC: ASU 11:09 → 3E 11:09

== ENCOUNTER 2020-11-05 01:48 | Inpatient (IN) ==
[2020-11-05] MEDS ORDERED: ONDANSETRON INJ 2 MG/ML 2 ML VIAL IV STA ×2 (02:09→06:02)
--- NOTE | 2020-11-05 02:17 | Emergency Department Note ---
Impression & Plan Bulging of lumbar intervertebral disc, Left-sided low back pain with left-sided sciatica, Intractable low back pain ED Provider Note Name: KAN ROGEL Age: 70 Sex: F Arrives Via: Walk-In Informant: Patient ED Provider: Torrey Seals MD Chief Complaint: low back pain Impression: As Above Medical Decision Makin yr old female with worsening left back pain with sciatica worsening over the last week despite trials of pain meds and steroids. No neuro deficits and exam benign other than clearly uncomfortable. Initially patient requested non-narcotic Toradol without improvement unfortunately. She was then given IV fentanyl with improvement but back returned quickly. Labs with some mild hyperglycemia. CT lumbar/pelvis without fracture nor other acute findings. Was given Dilaudid IV after discussion with her regarding fact pain to point where she can't even sit up. MRI ordered due to intractable pain. MRI with quite large disc bulge consistent with her pain and findings. She does not have loss bowel/bladder and leg is not weak on exam thus I think it reasonable to monitor for steroid effectiveness rather than emergent surgical consultation. She is unable to tolerate ambulation thus will need to come in for management. Prior Medical Record and Triage/Nursing Notes reviewed by Me Additional history obtained from chart Differentials:Musculoskeletal, disc herniation, fracture, metastatic disease, cord compression, discitis, sciatica, cauda equina, infection, aortic disease, renal colic, gastrointestinal, as well as other pathologies. Vital Signs: reviewed and remarkable for HTN Interventions: saline lock, fentanyl 25mcg IV x 2, toradol 10mg iv, decadron 10mg IV, zofran 4mg iv x 2, dilaudid 0.5mg IV Labs:Reviewed and remarkable for mild hyperglycemia Imaging:[facility] Radiologist interpretation reviewed by me: CT lumbar/pelvis: no acute findings Consults:Dr Wilfredo HERNANDEZ Hospitalist Plan: Disposition:Hospitalization. Condition: Good History of Present Illness:70 yr old female arrives for evaluation of back pain. Patient with trip and fall in kitchen 2 weeks ago landing on left hip/knee. Initially left knee pain which resolved shortly there-after followed by development worsening left back pain. Low left back radiating to buttock. Over last two weeks gradually progressing with pain to lateral left toes. Associated with periodically feeling toes go numb. No loss urine/bladder contro l. No weakness in leg. Denies fevers, chills, syncope, headache, neck pain, abdominal pain, upper/mid back pain, rashes, urinary symptoms, nor other symptoms. Oxy IR, Prednisone, Muscle relaxers do not work for pain. Notes sciatica several years ago which responded to steroids. Did not taken entire course steroids given HTN with them last week. Movement makes worse, rest makes better. Has tried ice with minimal improvement. ROS: See above HPI for pertinent positives & negatives. A total of 10 systems reviewed and were otherwise negative. Past Medical History:Osteoporosis, HTN Past Surgical History:bilateral knee surgery Family History:non contributory Social History:See Below Home Medications:See Below Allergies:codeine, sulfa, tramadol Vitals:Blood Pressure: 161/106, Pulse 88, RR 18, T 36.9C, O2 96% on RA Physical Exam: GENERAL: Patient is uncomfortable appearing and in moderate distress. EYES: No scleral icterus, unremarkable pupils. ENT: Mucous membranes moist, no nasal congestion. NECK: No masses appreciated, nomeningismus, trachea is midline. RESPIRATORY: No dyspnea. Clear to auscultation and equal bilaterally. No wheeze, no rhonchi. CARDIOVASCULAR: Regular rate and rhythm.No murmurs, rubs, gallops appreciated. GASTROINTESTINAL: Abdomen soft, non-tender, no peritonitis.Bowel sounds positive.No masses appreciated. BACK: TTP over left low lumbar lateral paraspinal muscles, No midline tenderness, no CVA tenderness EXTREMITIES: Normal motion all extremities, no cyanosis, no edema. NEUROLOGIC: Alert and oriented, no acute motor or sensory deficits, no focal weakness, cranial nerves grossly intact. SKIN: No rash, no jaundice, no diaphoresis. PSYCH: Appropriate GCS: 15 ED Course: Times/Reassessments: slow gradual improvement in pain Torrey Seals MD Past Med/Surg History Medical History (Updated 11/05/20 @ 08:20 by Torrey Seals MD) Chronic back pain Lyme disease Osteoarthritis Pre-diabetes weight loss and diet and no meds; A1C up to 7.3% on pre op labs -- forwarded to PCP for follow-up. Surgical History History of open reduction and internal fixation (ORIF) procedure left elbow History of total left knee replacement Hx of appendectomy Hx of hysterectomy Hx of tonsillectomy PONV (postoperative nausea and vomiting) Social History Smoking Status: Never smoker Second Hand Exposure: No; Hx Alcohol Use: No Hx Substance Use: No Preferred Language: Tristanian Communication Ability: Effective International Bank Manager Required: No Beliefs That Will Affect Care: None marital status: Current Living Situation: Spouse Feels Safe at Home: Yes Assistive Devices: Walker Allergies Allergies Allergy/AdvReac Type Severity Reaction Status Date / Time codeine Allergy Intermediate vomiting Verified 11/05/20 02:35 Sulfa (Sulfonamide Allergy Intermediate hives Verified 11/05/20 02:35 Antibiotics) tramadol AdvReac NAUSEA/VOMI Unverified 11/05/20 02:35 TING Home Meds Home Medications Medication Instructions Recorded Confirmed cholecalciferol (vitamin D3) 125 250 mcg PO QAM 11/07/19 11/05/20 mcg (5,000 unit) tablet (Vitamin D3) lactobacillus combination no.4 3 3,000 mmu cells PO HS 11/07/19 11/05/20 billion cell capsule (Probiotic) multivitamin 1 cap PO QAM 11/07/19 11/05/20 Previous Rx's Medication Instructions Recorded oxycodone 5 mg tablet 5 - 10 mg PO Q6H PRN #30 tab MDD 6 12/10/19 TABS/24H sennosides 8.6 mg-docusate sodium 2 tab-cap PO BID PRN #60 tab 12/19/19 50 mg tablet (Senokot-S) Results & Data (ED) Vital Signs Vital Signs - 24 hr 11/05/20 01:51 11/05/20 03:31 11/05/20 05:06 Temperature 36.9 C Temperature Source Temporal Artery Scan Pulse Rate 88 Pulse Rate [Finger] 98 H 80 Pulse Rhythm [Finger] Regular Respiratory Rate 18 18 Respiratory Depth Normal Normal Blood Pressure 161/106 H Blood Pressure [Left Arm] 189/119 H 168/95 H Blood Pressure Mean 124 Blood Pressure Mean [Left Arm] 142 119 Blood Pressure Position [Left Arm] Lying Pulse Oximetry 96 96 99 Oxygen Delivery Method Room Air Room Air Nasal Cannula Oxygen Flow Rate 2 Sepsis Recent Fever Within 48 Hours No Sepsis New/Unexplained Change in Mental Status N/A Sepsis Action Taken by Nursing No Action Required 11/05/20 06:54 Temperature Temperature Source Pulse Rate Pulse Rate [Finger] 78 Pulse Rhythm [Finger] Respiratory Rate Respiratory Depth Blood Pressure Blood Pressure [Left Arm] 171/105 H Blood Pressure Mean Blood Pressure Mean [Left Arm] 127 Blood Pressure Position [Left Arm] Pulse Oximetry 95 Oxygen Delivery Method Nasal Cannula Oxygen Flow Rate 2 Sepsis Recent Fever Within 48 Hours Sepsis New/Unexplained Change in Mental Status Sepsis Action Taken by Nursing Laboratory Data Result diagrams: 11/05/20 02:30 11/05/20 02:30 Lab Results 11/05/20 11/05/20 Range/Units 02:30 02:30 WBC 9.40 (4.8-10.8) K/uL RBC 5.28 (4.2-5.4) M/uL Hgb 15.3 (12.0-16.0) g/dL Hct 44.3 (37-47) % MCV 83.9 (80-100) fL MCH 29.0 (25-34) pg MCHC 34.5 (32-36) g/dL RDW Std Deviation 40.5 (36.4-46.3) fL RDW Coeff of Albina 13.4 (11.5-14.5) % Plt Count 313 (130-400) K/uL MPV 10.3 (7.4-10.4) fL Immature Gran % (Auto) 0.4 % Neut % (Auto) 63.2 % Lymph % (Auto) 27.7 % Brown % (Auto) 5.4 % Eos % (Auto) 3.0 % Baso % (Auto) 0.3 % Neut # (Auto) 5.94 (1.4-6.5) K/uL Lymph # (Auto) 2.60 (1.2-3.4) K/uL Brown # (Auto) 0.51 (0.11-0.59) K/uL Eos # (Auto) 0.28 (0-0.5) K/uL Baso # (Auto) 0.03 (0-0.2) K/uL Immature Gran # (Auto) 0.04 H (0.00-0.02) K/uL Sodium 137 (136-145) mmol/L Potassium 4.3 (3.5-5.1) mmol/L Chloride 108 H (98-107) mmol/L Carbon Dioxide 27 (21-32) mmol/L Anion Gap 2.0 L (3-11) BUN 15 (7-18) mg/dl Creatinine 0.76 (0.6-1.2) mg/dl Est Cr Clr Drug Dosing 61.7 ml/min Est GFR ( Amer) 90.8 ml/min Est GFR (Non-Af Amer) 78.4 ml/min BUN/Creatinine Ratio 20.3 H (10-20) Glucose 166 H (70-99) mg/dl Calcium 9.4 (8.5-10.1) mg/dl Specimen Hemolysis Administered Medications Discontinued Medications Dexamethasone Sodium Phosphate (DexamethasonePf 10 Mg/Ml Vial) 10 mg IV NOW ONE Stop: 11/05/20 05:14 Last Admin: 11/05/20 05:19 Dose: 10 mg Documented by: [id number] Fentanyl Citrate (Fentanyl Citrate 100 Mcg/2 Ml Vial) 25 mcg IV NOW STA Stop: 11/05/20 04:00 Last Admin: 11/05/20 04:06 Dose: 25 mcg Documented by: [id number] Fentanyl Citrate (Fentanyl Citrate 100 Mcg/2 Ml Vial) 25 mcg IV NOW ONE Stop: 11/05/20 04:00 Last Admin: 11/05/20 04:31 Dose: 25 mcg Documented by: [id number] Hydromorphone HCl (Hydromorphone Inj 0.5 Mg/0.5 Ml Syr) 0.5 mg IV NOW STA Stop: 11/05/20 02:10 Last Admin: 11/05/20 03:37 Dose: Not Given Documented by: [id number] Hydromorphone HCl (Hydromorphone Inj 0.5 Mg/0.5 Ml Syr) 0.5 mg IV NOW STA Stop: 11/05/20 06:03 Last Admin: 11/05/20 06:12 Dose: 0.5 mg Documented by: [id number] Ketorolac Tromethamine (Ketorolac Tromethamine 15 Mg/Ml Vial) 10 mg IV NOW ONE Stop: 11/05/20 03:21 Last Admin: 11/05/20 03:31 Dose: 10 mg Documented by: [id number] Ondansetron HCl (Ondansetron Inj 2 Mg/Ml 2 Ml Vial) 4 mg IV NOW STA Stop: 11/05/20 02:10 Last Admin: 11/05/20 02:54 Dose: 4 mg Documented by: [id number] Ondansetron HCl (Ondansetron Inj 2 Mg/Ml 2 Ml Vial) 4 mg IV NOW STA Stop: 11/05/20 06:03 Last Admin: 11/05/20 06:12 Dose: 4 mg Documented by: [id number] Imaging Data Radiologist's Impression: Lumbar Spine CT 11/05/20 02:09 CT lumbar spine wo con HISTORY: 70 years-old Female lower back pain s/p fall acute low back pain status post fall COMPARISON: MR lumbar spine of same day TECHNIQUE: Multiple axial CT images of the lumbar spine were obtained without the use of IV contrast. A dose lowering technique was used consistent with the principals of ALARA. FINDINGS: Demineralized appearance of the bones. No acute fracture, subluxation or endplate erosion. Moderate to severe facet arthrosis at L3-L4, L4-L5 and L5-S1. Multilevel moderate spondylitic spurring with posterior disc osteophyte complex relation is, better assessed on the MRI study of same day. There is resultant multilevel central canal or neural foraminal narrowing. No spondylolysis or spondylolisthesis. The imaged sacrum and iliac bones appear intact. Atherosclerotic plaque of the abdominal aorta. Atrophic left kidney with multifocal cortical thinning and parenchymal calcifications. Hepatic steatosis. No paravertebral edema. IMPRESSION: 1. Degenerative changes as above without acute fracture or subluxation. 2. Atrophic left kidney. 3. Hepatic steatosis. ACT 112: Negative or not required by law. The above report was generated using voice recognition software. It may contain grammatical, syntax or spelling errors. Electronically signed by: Xavier Henderson M.D. 11/05/2020 8:[address] 11/05/20 02:09 CT pelvis wo con HISTORY: 70 years-old Female fall, left low back/hip pain acute pelvic and low back pain status post fall COMPARISON: CT and MRI lumbar spine studies of same day, CT abdomen and pelvis 12/19/2019 TECHNIQUE: Multiple axial CT images of the pelvis were obtained without the use of IV contrast. A dose lowering technique was used consistent with the principals of ALARA. FINDINGS: Colonic diverticulosis. The uterus appears to be surgically absent. Mild wall thickening of the sigmoid and rectum is likely secondary to partial distention and/or chronic muscular hypertrophy. Mild urinary bladder wall thickening with partial distention. Unremarkable soft tissues. No free fluid within the pelvis. Discogenic degeneration with spondylitic spurring and facet arthrosis of the lower lumbar spine. Demineralized appearance of the bones. Mild degeneration of the SI joints. No acute sacral insufficiency fracture identified. No acute pelvic ring fracture. Mild osteoarthritis of the hips without acute fracture, dislocation or avascular necrosis. IMPRESSION: No acute fracture. ACT 112: Negative or not required by law. The above report was generated using voice recognition software. It may contain grammatical, syntax or spelling errors. Electronically signed by: Xavier Henderson M.D. 11/05/2020 7:58 AM Lumbar Spine MRI 11/05/20 06:02 MR lumbar spine wo con CLINICAL HISTORY: Intractable lower back pain. Left leg radiculopathy. TECHNIQUE: Sagittal and axial T1, T2 and STIR images were obtained. COMPARISON STUDY: CT scan dated 11/05/2020 OBSERVATIONS: There is a nonspecific T1 hypointense, T2 hyperintense 9 mm lesion within the T10 vertebra. L1-2: No disc protrusions or extrusions. No evidence of spinal canal or neural foraminal compromise. L2-3: There is a circumferential disc bulge with mild to moderate spinal stenosis. The AP diameter of thecal sac measures 7.6 mm. There is no significant foraminal narrowing L3-4: There is a circumferential disc bulge, an extruded left-sided disc herniation which fills the left lateral recess. This herniated disc fragment measures 15 mm x 6 mm x 7 mm. There is moderate spinal stenosis. There is facet joint arthropathy. The left-sided extruded disc fragment likely impinges on the left L4 nerve root. There is mild right-sided foraminal narrowing, and moderate left-sided foraminal narrowing L4-5: There is a circumferential disc bulge with mild spinal stenosis. There is facet joint arthropathy. There is moderate bilateral foraminal narrowing. L5-S1: No disc protrusions or extrusions. No evidence of spinal canal or neural foraminal compromise. There is facet joint arthropathy. The conus medullaris and cauda equina appear normal. IMPRESSION: 1. Multilevel spondylytic changes 2. Large left-sided extruded disc herniation at the L3-4 level which extends inferiorly and fills the left lateral recess. This likely impinges on the left L4 nerve root. There is moderate spinal stenosis at this level. 3. Disc bulge and mild to moderate spinal stenosis at the L2-3 level. Mild spinal stenosis at the L4-5 level. 4. Foraminal narrowing at the L3-4, and L4-5 levels. 5. Nonspecific 9 mm rounded area of marrow replacement involving the T10 vertebra ACT 112: Negative or not required by law. Electronically signed by: Mike Schofield M.D. 11/05/2020 7:56 AM Discharge Plan Visit Data Chief Complaint: Back Injury/Pain Stated Complaint: FALL COUPLE WKS AGO, BACK PAIN ED Provider: Torrey Seals Discharge Problem: Bulging of lumbar intervertebral disc, Left-sided low back pain with left-sided sciatica, Intractable low back pain Forms Stand Alone Forms: [facility] Prescriptions Prescriptions: No Action multivitamin Capsule 1 cap PO QAM RF: 0 cholecalciferol (vitamin D3) [Vitamin D3] 125 mcg (5,000 unit) Tablet 250 mcg PO QAM RF: 0 Probiotic 3 billion cell Capsule 3,000 mmu cells PO HS RF: 0 oxycodone 5 mg Tablet 5 - 10 mg PO Q6H MDD 6 TABS/24H PRN (Reason: pain) Qty: 30 RF: 0 sennosides-docusate sodium [Senokot-S] 8.6-50 mg tablet 2 tab-cap PO BID PRN (Reason: constipation) Qty: 60 RF: 1 Referrals Referrals: Silas Hoff [Primary Care Provider] - Discharge Problem: Left-sided low back pain with left-sided sciatica Qualifiers: Chronicity: acute Qualified Code(s): M54.42 - Lumbago with sciatica, left side
[2020-11-05 02:50] LABS: Basophils # (auto) 0.03 K/uL (0-0.2); Basophils % (auto) 0.3 %; Eosinophils # (auto) 0.28 K/uL (0-0.5); Hematocrit (blood only) 44.3 % (37-47); Hemoglobin 15.3 g/dL (12.0-16.0); Immature Granulocytes # (auto) 0.04 K/uL (0.00-0.02); Immature Granulocytes % (auto) 0.4 %; Lymphocytes % (auto) 27.7 %; Mean Corpuscular Hgb Conc 34.5 g/dL (32-36); Mean Corpuscular Volume 83.9 fL (80-100); Mean Platelet Volume 10.3 fL (7.4-10.4); Monocytes # (auto) 0.51 K/uL (0.11-0.59); Monocytes % (auto) 5.4 %; Neutrophils # (auto) 5.94 K/uL (1.4-6.5); Neutrophils % (auto) 63.2 %; Platelet Count 313 K/uL (130-400); RDW Coefficient of Variation 13.4 % (11.5-14.5); RDW Standard Deviation 40.5 fL (36.4-46.3); Red Blood Count 5.28 M/uL (4.2-5.4)
[2020-11-05] MEDS: HYDROmorphone INJ 0.5 MG/0.5 ML SYR IV STA ×2 (02:53→03:37)
[2020-11-05] MEDS ORDERED: KETOROLAC TROMETHAMINE 15 MG/ML VIAL IV ONE (03:20)
[2020-11-05 03:34] LABS: BUN Creatinine Ratio 20.3 (10-20); Calcium 9.4 mg/dl (8.5-10.1); Creatinine Clr Calc Pharmacy 61.7 ml/min; Est GFR (African American) 90.8 ml/min; Est GFR (Non-African American) 78.4 ml/min; Potassium 4.3 mmol/L (3.5-5.1)
[2020-11-05] MEDS ORDERED: fentaNYL citrate 100 MCG/2 ML VIAL IV ONE (03:59)
[2020-11-05] MEDS ORDERED: fentaNYL citrate 100 MCG/2 ML VIAL IV STA (03:59)
[2020-11-05] MEDS ORDERED: dexAMETHasone**PF** 10 MG/ML VIAL IV ONE (05:13)
[2020-11-05] MEDS ORDERED: HYDROmorphone INJ 0.5 MG/0.5 ML SYR IV STA (06:02)
--- NOTE | 2020-11-05 07:57 | Magnetic Resonance Report ---
MR lumbar spine wo con CLINICAL HISTORY: Intractable lower back pain. Left leg radiculopathy. TECHNIQUE: Sagittal and axial T1, T2 and STIR images were obtained. COMPARISON STUDY: CT scan dated 11/05/2020 OBSERVATIONS: There is a nonspecific T1 hypointense, T2 hyperintense 9 mm lesion within the T10 vertebra. L1-2: No disc protrusions or extrusions. No evidence of spinal canal or neural foraminal compromise. L2-3: There is a circumferential disc bulge with mild to moderate spinal stenosis. The AP diameter of thecal sac measures 7.6 mm. There is no significant foraminal narrowing L3-4: There is a circumferential disc bulge, an extruded left-sided disc herniation which fills the l eft lateral recess. This herniated disc fragment measures 15 mm x 6 mm x 7 mm. There is moderate spin al stenosis. There is facet joint arthropathy. The left-sided extruded disc fragment likely impinges on the left L4 nerve root. There is mild right-sided foraminal narrowing, and moderate left-sided for aminal narrowing L4-5: There is a circumferential disc bulge with mild spinal stenosis. There is facet joint arthropat hy. There is moderate bilateral foraminal narrowing. L5-S1: No disc protrusions or extrusions. No evidence of spinal canal or neural foraminal compromise. There is facet joint arthropathy. The conus medullaris and cauda equina appear normal. IMPRESSION: 1. Multilevel spondylytic changes 2. Large left-sided extruded disc herniation at the L3-4 level which extends inferiorly and fills the left lateral recess. This likely impinges on the left L4 nerve root. There is moderate spinal stenos is at this level. 3. Disc bulge and mild to moderate spinal stenosis at the L2-3 level. Mild spinal stenosis at the L4- 5 level. 4. Foraminal narrowing at the L3-4, and L4-5 levels. 5. Nonspecific 9 mm rounded area of marrow replacement involving the T10 vertebra ACT 112: Negative or not required by law. Electronically signed by: Mike Schofield M.D. 11/05/2020 7:56 AM
--- NOTE | 2020-11-05 07:59 | CT Scan Report ---
CT pelvis wo con HISTORY: 70 years-old Female fall, left low back/hip pain acute pelvic and low back pain status post fall COMPARISON: CT and MRI lumbar spine studies of same day, CT abdomen and pelvis 12/19/2019 TECHNIQUE: Multiple axial CT images of the pelvis were obtained without the use of IV contrast. A dos e lowering technique was used consistent with the principals of COLLIN. FINDINGS: Colonic diverticulosis. The uterus appears to be surgically absent. Mild wall thickening of the sigmo id and rectum is likely secondary to partial distention and/or chronic muscular hypertrophy. Mild uri nary bladder wall thickening with partial distention. Unremarkable soft tissues. No free fluid within the pelvis. Discogenic degeneration with spondylitic spurring and facet arthrosis of the lower lumbar spine. Vandana neralized appearance of the bones. Mild degeneration of the SI joints. No acute sacral insufficiency fracture identified. No acute pelvic ring fracture. Mild osteoarthritis of the hips without acute fra cture, dislocation or avascular necrosis. IMPRESSION: No acute fracture. ACT 112: Negative or not required by law. The above report was generated using voice recognition software. It may contain grammatical, syntax o r spelling errors. Electronically signed by: Xavier Henderson M.D. 11/05/2020 7:58 AM
--- NOTE | 2020-11-05 08:02 | CT Scan Report ---
CT lumbar spine wo con HISTORY: 70 years-old Female lower back pain s/p fall acute low back pain status post fall COMPARISON: MR lumbar spine of same day TECHNIQUE: Multiple axial CT images of the lumbar spine were obtained without the use of IV contrast. A dose lowering technique was used consistent with the principals of COLLIN. FINDINGS: Demineralized appearance of the bones. No acute fracture, subluxation or endplate erosion. Moderate t o severe facet arthrosis at L3-L4, L4-L5 and L5-S1. Multilevel moderate spondylitic spurring with pos terior disc osteophyte complex relation is, better assessed on the MRI study of same day. There is re sultant multilevel central canal or neural foraminal narrowing. No spondylolysis or spondylolisthesis . The imaged sacrum and iliac bones appear intact. Atherosclerotic plaque of the abdominal aorta. Atrophic left kidney with multifocal cortical thinning and parenchymal calcifications. Hepatic steatosis. No paravertebral edema. IMPRESSION: 1. Degenerative changes as above without acute fracture or subluxation. 2. Atrophic left kidney. 3. Hepatic steatosis. ACT 112: Negative or not required by law. The above report was generated using voice recognition software. It may contain grammatical, syntax o r spelling errors. Electronically signed by: Xavier Henderson M.D. 11/05/2020 8:01 AM
[2020-11-05] MEDS ORDERED: HYDROmorphone INJ 0.5 MG/0.5 ML SYR IV PRN (08:16)
--- NOTE | 2020-11-05 09:20 | History & Physical Report ---
Date of Service November 05, 2020 Assessment & Plan (1) Left-sided low back pain with left-sided sciatica: Plan: Lumbar radiculopathy with HNP at L4-5 with impingement L4 nerve root with severe pain and numbness down left lower extremity Reviewed case with orthopedic spine surgeon on the phone-needs decompression -Admit for pain control -Patient reports significant hypertension with minimal doses of prednisone in the past-we will avoid steroids -Continue oxycodone 5 to 10 mg p.o. every 6 hours as needed moderate to severe pain, IV Dilaudid as needed severe pain, Tylenol for mild to moderate pain -Orthopedic spine surgery consultation appreciated-likely plan for surgery on Sunday-patient is agreeable to this -She is at average cardiovascular perioperative risk for this intermediate risk procedure and should proceed with surgery as planned -Check preoperative ECG (2) Diabetes mellitus: Plan: Hemoglobin A1c last checked in 10/2019 was 7.3% She uses diet control at home but has recently gained more weight Blood sugar in the 160s on arrival Diabetic diet Accu-Cheks before every meal and at bedtime NovoLog supplemental insulin, add Lantus if needed Check hemoglobin A1c in the morning (3) Constipation: Plan: With a previous history of severe opioid-induced constipation -Start MiraLAX twice daily, senna/docusate twice daily (4) Osteoarthritis: Plan: Pain control as needed (5) DVT prophylaxis: Plan: SCDs Disposition-admit to medical/surgical floor Full code, but would not want prolonged life support in the event of end-stage condition History of Present Illness Chief Complaint: Back and leg pain Primary Care Provider: Silas Hoff This patient is a 70-year-old female with a history of OA, vitamin D deficiency, obesity, Lyme disease, DM 2, hyperlipidemia, and lone atrial fibrillation, who presents to the ER with worsening left lower back pain with left lower extremity pain over the last week despite trials of pain meds and steroids as an outpatient. She tripped and fell in her kitchen 2 weeks ago and landed on her left hip and knee. Initially had some knee pain which then resolved but was followed by development of worsening left lower back pain radiating to the buttock. It is now radiating down into her left toes and periodically has numbness. She denies loss of bowel or bladder function, no weakness in the leg but it is difficult to ambulate due to pain. No fevers or chills. In the ER, she was given Toradol without improvement and then IV fentanyl with improvement but then pain returned. CT of the lumbar spine and pelvis was without fracture or other acute findings. She was given IV Dilaudid for severe pain. MRI was ordered due to intractable pain in the ER and she was found to have a large left-sided extruded disc herniation at the L3-4 level which extends inferiorly and fills the left lateral recess. This likely impinges on the left L4 nerve root. There is moderate spinal stenosis at this level. She was unable to ambulate in the ER. She will be admitted for intractable pain from lumbar HNP with radiculopathy and for orthopedic spine surgical evaluation. Allergies Allergy/AdvReac Type Severity Reaction Status Date / Time codeine Allergy Intermediate vomiting Verified 11/05/20 02:35 Sulfa (Sulfonamide Allergy Intermediate hives Verified 11/05/20 02:35 Antibiotics) tramadol AdvReac NAUSEA/VOMI Unverified 11/05/20 02:35 TING Home Medications Medication Instructions Recorded Confirmed Type cholecalciferol (vitamin D3) 125 250 mcg PO QAM 11/07/19 11/05/20 History mcg (5,000 unit) tablet (Vitamin D3) lactobacillus combination no.4 3 3,000 mmu cells PO HS 11/07/19 11/05/20 History billion cell capsule (Probiotic) multivitamin 1 cap PO QAM 11/07/19 11/05/20 History oxycodone 5 mg tablet 5 - 10 mg PO Q6H PRN #30 tab MDD 6 12/10/19 11/05/20 Rx TABS/24H sennosides 8.6 mg-docusate sodium 2 tab-cap PO BID PRN #60 tab 12/19/19 11/05/20 Rx 50 mg tablet (Senokot-S) Past Med/Surg History Medical History (Updated 11/05/20 @ 10:16 by Aditi Cramer MD) Chronic back pain Diabetes mellitus Lyme disease Osteoarthritis Pre-diabetes weight loss and diet and no meds; A1C up to 7.3% on pre op labs -- forwarded to PCP for follow-up. Surgical History (Updated 11/05/20 @ 10:16 by Aditi Cramer MD) History of open reduction and internal fixation (ORIF) procedure left elbow History of total left knee replacement History of total right knee replacement Hx of appendectomy Hx of hysterectomy Hx of tonsillectomy PONV (postoperative nausea and vomiting) Family History Other Family history non-contributory Social History Smoking Status: Never smoker Second Hand Exposure: No; Hx Alcohol Use: No Hx Substance Use: No Preferred Language: Kiswahili Communication Ability: Effective Advertising Coordinator Required: No Beliefs That Will Affect Care: None marital status: Current Living Situation: Spouse Feels Safe at Home: Yes Assistive Devices: Walker Review of Systems Review of Systems: All systems reviewed & are unremarkable except as noted in HPI & below Denies headaches or fevers or chills, no sore throat, denies cough or chest pain, no shortness of breath, no nausea or vomiting, no abdominal pain. She has a history of severe constipation with taking opioids in the past. No blood in the stool. No urinary symptoms-no urgency or burning, no hematuria No other injuries or pain at this time Physical Exam Constitutional: WD/WN, vitals as above Eyes: PERRL, conjunctivae normal, anicteric sclerae ENMT: external ear and nose normal, oropharynx normal Neck: trachea midline, no thyromegaly Respiratory: normal respiratory effort, lungs clear to auscultation Cardiovascular: RRR, no murmur, no edema Chest (Breasts): Chest: normal inspection of chest Gastrointestinal (Abdomen): normal bowel sounds, soft, nontender, no hepatosplenomegaly Musculoskeletal: Extremities: extremities normal to inspection; no cyanosis and no clubbing Skin: no rashes, warm and dry Neurologic: moves all extremities and awake; + abnormal deep tendon reflexes (Difficult to obtain with bilateral knee replacement) and no focal motor deficits Motor/Sensory: no tremor and no sensory deficit Negative straight leg raise bilaterally Psychiatric: A+Ox3, euthymic affect Lymphatic: no lymphedema Results & Data Results & Data ([facility]) Vital Signs (Past 12 Hours) Vital Signs Temp Pulse Pulse Resp BP BP Pulse Ox 11/05/20 06:54 78 171/105 H 95 11/05/20 05:06 80 168/95 H 99 11/05/20 03:31 98 H 18 189/119 H 96 11/05/20 01:51 36.9 C 88 18 161/106 H 96 Laboratory Results 11/05/20 11/05/20 Range/Units 02:30 02:30 WBC 9.40 (4.8-10.8) K/uL RBC 5.28 (4.2-5.4) M/uL Hgb 15.3 (12.0-16.0) g/dL Hct 44.3 (37-47) % MCV 83.9 (80-100) fL MCH 29.0 (25-34) pg MCHC 34.5 (32-36) g/dL RDW Std Deviation 40.5 (36.4-46.3) fL RDW Coeff of [place] 13.4 (11.5-14.5) % Plt Count 313 (130-400) K/uL MPV 10.3 (7.4-10.4) fL Immature Gran % (Auto) 0.4 % Neut % (Auto) 63.2 % Lymph % (Auto) 27.7 % [place] % (Auto) 5.4 % Eos % (Auto) 3.0 % Baso % (Auto) 0.3 % Neut # (Auto) 5.94 (1.4-6.5) K/uL Lymph # (Auto) 2.60 (1.2-3.4) K/uL [place] # (Auto) 0.51 (0.11-0.59) K/uL Eos # (Auto) 0.28 (0-0.5) K/uL Baso # (Auto) 0.03 (0-0.2) K/uL Immature Gran # (Auto) 0.04 H (0.00-0.02) K/uL Sodium 137 (136-145) mmol/L Potassium 4.3 (3.5-5.1) mmol/L Chloride 108 H (98-107) mmol/L Carbon Dioxide 27 (21-32) mmol/L Anion Gap 2.0 L (3-11) BUN 15 (7-18) mg/dl Creatinine 0.76 (0.6-1.2) mg/dl Est Cr Clr Drug Dosing 61.7 ml/min Est GFR ( Amer) 90.8 ml/min Est GFR (Non-Af Amer) 78.4 ml/min BUN/Creatinine Ratio 20.3 H (10-20) Glucose 166 H (70-99) mg/dl Calcium 9.4 (8.5-10.1) mg/dl Specimen Hemolysis Diagnostic Findings Lumbar Spine CT 11/05/20 02:09 CT lumbar spine wo con HISTORY: 70 years-old Female lower back pain s/p fall acute low back pain status post fall COMPARISON: MR lumbar spine of same day TECHNIQUE: Multiple axial CT images of the lumbar spine were obtained without the use of IV contrast. A dose lowering technique was used consistent with the principals of ALARA. FINDINGS: Demineralized appearance of the bones. No acute fracture, subluxation or endplate erosion. Moderate to severe facet arthrosis at L3-L4, L4-L5 and L5-S1. Multilevel moderate spondylitic spurring with posterior disc osteophyte complex relation is, better assessed on the MRI study of same day. There is resultant multilevel central canal or neural foraminal narrowing. No spondylolysis or spondylolisthesis. The imaged sacrum and iliac bones appear intact. Atherosclerotic plaque of the abdominal aorta. Atrophic left kidney with multifocal cortical thinning and parenchymal calcifications. Hepatic steatosis. No paravertebral edema. IMPRESSION: 1. Degenerative changes as above without acute fracture or subluxation. 2. Atrophic left kidney. 3. Hepatic steatosis. ACT 112: Negative or not required by law. The above report was generated using voice recognition software. It may contain grammatical, syntax or spelling errors. Electronically signed by: Xavier Henderson M.D. 11/05/2020 8:[address] 11/05/20 02:09 CT pelvis wo con HISTORY: 70 years-old Female fall, left low back/hip pain acute pelvic and low back pain status post fall COMPARISON: CT and MRI lumbar spine studies of same day, CT abdomen and pelvis 12/19/2019 TECHNIQUE: Multiple axial CT images of the pelvis were obtained without the use of IV contrast. A dose lowering technique was used consistent with the principals of ALARA. FINDINGS: Colonic diverticulosis. The uterus appears to be surgically absent. Mild wall thickening of the sigmoid and rectum is likely secondary to partial distention and/or chronic muscular hypertrophy. Mild urinary bladder wall thickening with partial distention. Unremarkable soft tissues. No free fluid within the pelvis. Discogenic degeneration with spondylitic spurring and facet arthrosis of the lower lumbar spine. Demineralized appearance of the bones. Mild degeneration of the SI joints. No acute sacral insufficiency fracture identified. No acute pelvic ring fracture. Mild osteoarthritis of the hips without acute fracture, dislocation or avascular necrosis. IMPRESSION: No acute fracture. ACT 112: Negative or not required by law. The above report was generated using voice recognition software. It may contain grammatical, syntax or spelling errors. Electronically signed by: Xavier Henderson M.D. 11/05/2020 7:58 AM Lumbar Spine MRI 11/05/20 06:02 MR lumbar spine wo con CLINICAL HISTORY: Intractable lower back pain. Left leg radiculopathy. TECHNIQUE: Sagittal and axial T1, T2 and STIR images were obtained. COMPARISON STUDY: CT scan dated 11/05/2020 OBSERVATIONS: There is a nonspecific T1 hypointense, T2 hyperintense 9 mm lesion within the T10 vertebra. L1-2: No disc protrusions or extrusions. No evidence of spinal canal or neural foraminal compromise. L2-3: There is a circumferential disc bulge with mild to moderate spinal stenosi s. The AP diameter of thecal sac measures 7.6 mm. There is no significant foraminal narrowing L3-4: There is a circumferential disc bulge, an extruded left-sided disc herniation which fills the left lateral recess. This herniated disc fragment measures 15 mm x 6 mm x 7 mm. There is moderate spinal stenosis. There is facet joint arthropathy. The left-sided extruded disc fragment likely impinges on the left L4 nerve root. There is mild right-sided foraminal narrowing, and moderate left-sided foraminal narrowing L4-5: There is a circumferential disc bulge with mild spinal stenosis. There is facet joint arthropathy. There is moderate bilateral foraminal narrowing. L5-S1: No disc protrusions or extrusions. No evidence of spinal canal or neural foraminal compromise. There is facet joint arthropathy. The conus medullaris and cauda equina appear normal. IMPRESSION: 1. Multilevel spondylytic changes 2. Large left-sided extruded disc herniation at the L3-4 level which extends inferiorly and fills the left lateral recess. This likely impinges on the left L4 nerve root. There is moderate spinal stenosis at this level. 3. Disc bulge and mild to moderate spinal stenosis at the L2-3 level. Mild spinal stenosis at the L4-5 level. 4. Foraminal narrowing at the L3-4, and L4-5 levels. 5. Nonspecific 9 mm rounded area of marrow replacement involving the T10 vertebra ACT 112: Negative or not required by law. Electronically signed by: Mike Schofield M.D. 11/05/2020 7:56 AM Code Status & VTE Plan Code Status Full code VTE Prophylaxis Plan VTE Prophylaxis will be ordered: Yes PG Care Time/CCT Total # of Minutes Spent Total Time Spent with Patient: Total time spent is greater than 50% in coordination of care (as documented) at patient's floor/unit and/or counseling patient: Coding Level of Care Code 32827 Initial Inpt Care Lvl 3 Diagnoses Left-sided low back pain with left-sided sciatica M54.42 Chronicity: acute Osteoarthritis M19.90 DVT prophylaxis Z29.9 Diabetes mellitus E11.9 Constipation K59.00 (1) Left-sided low back pain with left-sided sciatica Chronicity: acute Qualified Code(s): M54.42 - Lumbago with sciatica, left side
[2020-11-05] MEDS ORDERED: GLUCAGON FOR INJ 1 MG VIAL SQ PRN (17:32)
[2020-11-05] MEDS ORDERED: GLUCOSE 10 TABS/TUBE PO PRN (17:32)
[2020-11-05] MEDS ORDERED: CARBOHYDRATES FOR HYPOGLYCEMIA PO PRN (17:32)
[2020-11-05] MEDS ORDERED: ONDANSETRON INJ 2 MG/ML 2 ML VIAL IV PRN (17:32)
[2020-11-05] MEDS ORDERED: DEXTROSE 50% 50 ML SYRINGE IV PRN (17:32)
[2020-11-05] MEDS ORDERED: GLUCOSE 40% GEL 15 GM TUBE PO PRN (17:32)
[2020-11-05] MEDS: POLYETHYLENE (MIRALAX) 17 GM PACK PO SCH ×2 (18:34→20:21)
[2020-11-05] MEDS: INSULIN ASPART 100 UNITS/ML 3 ML PEN SC SCH ×2 (18:35→20:31)
[2020-11-05] MEDS: DOCUSATE SODIUM/SENNA 50/8.6MG TAB PO SCH (20:22)
[2020-11-05] MEDS: ADVANCED PROBIOTIC 1250 MG CAPSULE PO SCH (20:22)
[2020-11-05] MEDS: HYDROmorphone INJ 0.5 MG/0.5 ML SYR IV PRN (21:32)
[2020-11-06 07:44] LABS: Estimated Average Glucose 203 mg/dl; Hemoglobin A1C 8.7 % (4.5-5.6)
[2020-11-06] MEDS: oxyCODONE HCL IR 5 MG TAB (IMMEDIATE RELEASE) PO PRN (07:53)
[2020-11-06] MEDS: DOCUSATE SODIUM/SENNA 50/8.6MG TAB PO SCH ×2 (08:48→21:14)
[2020-11-06] MEDS: POLYETHYLENE (MIRALAX) 17 GM PACK PO SCH ×2 (08:48→21:14)
[2020-11-06] MEDS: INSULIN ASPART 100 UNITS/ML 3 ML PEN SC SCH ×4 (08:48→21:15)
[2020-11-06] MEDS: MULTIVITAMIN TAB PO SCH (08:48)
[2020-11-06] MEDS: CHOLECALCIFEROL 1,000 UNITS 25 MCG TAB PO SCH (08:48)
--- NOTE | 2020-11-06 09:21 | Orthopedic Consultation ---
Date of Consultation November 06, 2020 Assessment & Plan (1) Lumbar disc herniation with radiculopathy: Assessment lumbar spinal stenosis with herniated was pulposis L3-L4. Plan I had a lengthy discussion today with the patient reviewing her clinical presentation and MRI findings. She has underlying spinal stenosis most impressive at L3-L4 with acute onset of disc herniation on the left. This is causing significant neural encroachment particular affecting the L4 nerve root on the left. This is clearly the etiology of symptom complex. She is markedly uncomfortable. She is unable to ambulate and has not slept in 2 weeks. She like to consider surgical invention. Would require a lumbar decompression L3-L4 with excision of herniated free fragment. Risk benefits pros cons and alternatives were outlined in detail. Risk include but not limited to anesthesia blindness stroke paralysis nerve damage blood loss requiring transfusion infection requiring reoperation. Benefit of the marked improvement of her radiculopathy. This time we will plan to move forward with surgery. We will have her cleared medically and hope for surgery Sunday. History of Present Illness Reason for Consultation: Back and left leg pain Attending Physician: Aditi Cramer MD History of Present Illness This a very pleasant 70 old female who presents with marked decline in status. She had over 2 weeks of severe left leg pain. Is described as rating into the left buttock posterior lateral thigh and into the lateral lower leg. Markedly exacerbated with standing walking. She has been unresponsive to any medications. She notes some modest improvement from her IV Decadron but is unable to tolerate steroids secondary to hypertension. The right lower extremities asymptomatic. She denies any specific trauma fall or event. She does note weakness affecting the left lower extremity. There is no changes in bowel bladder function. Allergies Allergy/AdvReac Type Severity Reaction Status Date / Time codeine Allergy Intermediate vomiting Verified 11/05/20 02:35 Sulfa (Sulfonamide Allergy Intermediate hives Verified 11/05/20 02:35 Antibiotics) tramadol AdvReac NAUSEA/VOMI Unverified 11/05/20 02:35 TING Home Medications Medication Instructions Recorded Confirmed Type cholecalciferol (vitamin D3) 125 250 mcg PO QAM 11/07/19 11/05/20 History mcg (5,000 unit) tablet (Vitamin D3) lactobacillus combination no.4 3 3,000 mmu cells PO HS 11/07/19 11/05/20 History billion cell capsule (Probiotic) multivitamin 1 cap PO QAM 11/07/19 11/05/20 History oxycodone 5 mg tablet 5 - 10 mg PO Q6H PRN #30 tab MDD 6 12/10/19 11/05/20 Rx TABS/24H sennosides 8.6 mg-docusate sodium 2 tab-cap PO BID PRN #60 tab 12/19/19 11/05/20 Rx 50 mg tablet (Senokot-S) Patient History Medical History (Updated 11/06/20 @ 09:20 by Ramo Mccullough DO) Chronic back pain Diabetes mellitus Lyme disease Osteoarthritis Pre-diabetes weight loss and diet and no meds; A1C up to 7.3% on pre op labs -- forwarded to PCP for follow-up. Surgical History (Updated 11/05/20 @ 10:16 by Aditi Cramer MD) History of open reduction and internal fixation (ORIF) procedure left elbow History of total left knee replacement History of total right knee replacement Hx of appendectomy Hx of hysterectomy Hx of tonsillectomy PONV (postoperative nausea and vomiting) Family History Other Family history non-contributory Social History Smoking Status: Never smoker Second Hand Exposure: Yes (States very little); Hx Alcohol Use: No Hx Substance Use: No Preferred Language: German Communication Ability: Effective Real Estate Paralegal Required: No Beliefs That Will Affect Care: None marital status: Current Living Situation: Spouse Other Information That Helps Us Care for You: No Feels Safe at Home: Yes Safety Concerns: Feels Safe At This Time Assistive Devices: Glasses Physical Exam Physical Exam: On exam she is in obvious distress. She prefers to sit up on the side of the bed. She exhibits significant tension signs with straight leg raising on the left negative on the right. She has +5-5 bilateral plantar flexion dorsiflexion extensor pollicis longus. There is a 4-/5 left quadriceps compared to 5 5 on the right. There is sensory changes to the left lower ex tremity compared to the right. Results & Data ([facility]) Vital Signs (Past 12 Hours) Vital Signs Temp Pulse Resp BP Pulse Ox 11/06/20 08:33 36.5 C 78 18 135/77 97 11/05/20 22:47 36.6 C 103 H 16 133/76 93
[2020-11-06] MEDS: ACETAMINOPHEN 325 MG TAB PO PRN ×4 (10:14→22:32)
--- NOTE | 2020-11-06 10:49 | Electrocardiogram Report ---
Test Reason : Blood Pressure : / mmHG Vent. Rate : 070 BPM Atrial Rate : 070 BPM P-R Int : 180 ms QRS Dur : 086 ms QT Int : 404 ms P-R-T Axes : 035 040 071 degrees QTc Int : 436 ms Normal sinus rhythm Nonspecific T wave abnormality Abnormal ECG When compared with ECG of 14-NOV-2019 13:16, QT has shortened Confirmed by Vitor Cruz ([id number]) on 11/06/2020 10:49:31 AM Referred By: REFERRED SELF Confirmed By:Vitor Cruz
[2020-11-06] MEDS ORDERED: MAGNESIUM CITRATE 296 ML/BTL PO STA (10:54)
--- NOTE | 2020-11-06 11:31 | Hospitalist Progress Note ---
Date of Service November 06, 2020 Assessment & Plan (1) Left-sided low back pain with left-sided sciatica: Plan: Lumbar radiculopathy with HNP at L4-5 with impingement L4 nerve root with severe pain and numbness down left lower extremity Reviewed case with orthopedic spine surgeon on the phone-needs decompression -Admit for pain control -Patient reports significant hypertension with minimal doses of prednisone in the past-we will avoid steroids-she did receive one dose of Decadron 10mg IV in ER -Continue oxycodone 5 to 10 mg p.o. every 6 hours as needed for moderate to severe pain, IV Dilaudid as needed severe pain, Tylenol for mild to moderate pain -Orthopedic spine surgery consultation appreciated- plan for surgery on Sunday- patient is agreeable to this SHe is able to achieve 4METS prior to this without any problems, no CAD or renal issues ECG with nonspecific TW abnormality in anterior leads unchanged from previous -She is at average cardiovascular perioperative risk for this intermediate risk procedure and should proceed with surgery as planned (2) Diabetes mellitus: Plan: Hemoglobin A1c last checked in 10/2019 was 7.3%, but now is up to 8.7% She uses diet control at home but has recently gained more weight Blood sugar in the 160s on arrival and higher lately due to IV Decadron in ER Diabetic diet Accu-Cheks before every meal and at bedtime NovoLog supplemental insulin, add Lantus 5 units once dialy today (3) Constipation: Plan: With a previous history of severe opioid-induced constipation No BM since 11/02 -cont MiraLAX twice daily, senna/docusate twice daily -add Mag citrate bottle today (4) Osteoarthritis: Plan: Pain control as needed (5) DVT prophylaxis: Plan: SCDs Disposition-continued stay medical/surgical floor Full code, but would not want prolonged life support in the event of end-stage condition Admission and Anticipated Discharge Date Admission Date: November 05, 2020 Subjective Pt has pain still in left buttock radiating down to left calf, worst in the calf. Still no BM in 4-5 days. No n/v, no CP or SOB, no abd pain. Seen by Ortho SPine today and she is agreeable for surgery on Sunday Review of Systems Review of Systems: All systems reviewed & are unremarkable except as noted in HPI & below Physical Exam Constitutional: WD/WN, vitals as above Eyes: + anicteric sclerae ENMT: external ear and nose normal, oropharynx normal Neck: trachea midline, no thyromegaly Respiratory: normal respiratory effort, lungs clear to auscultation Cardiovascular: RRR, no murmur, no edema Chest (Breasts): Chest: normal inspection of chest Gastrointestinal (Abdomen): normal bowel sounds, soft, nontender, no hepatosplenomegaly Musculoskeletal: Extremities: extremities normal to inspection; no cyanosis and no clubbing Skin: no rashes, warm and dry Neurologic: moves all extremities and awake; no focal motor deficits Motor/Sensory: no tremor and no sensory deficit Psychiatric: A+Ox3, euthymic affect Lymphatic: no lymphedema Results & Data Results & Data ([facility]) Vital Signs (Past 12 Hours) Vital Signs Temp Pulse Resp BP Pulse Ox 11/06/20 08:33 36.5 C 78 18 135/77 97 Laboratory Results 11/06/20 11/06/20 11/05/20 Range/Units 08:31 06:46 20:27 POC Glucose 146 H 184 H (70-99) mg/dl Estimat Average Glucose 203 mg/dl Hemoglobin A1c 8.7 H (4.5-5.6) % 11/05/20 Range/Units 18:05 POC Glucose 198 H (70-99) mg/dl Estimat Average Glucose mg/dl Hemoglobin A1c (4.5-5.6) % PG Care Time/CCT Total # of Minutes Spent Total Time Spent with Patient: Total time spent is greater than 50% in coordination of care (as documented) at patient's floor/unit and/or counseling patient: Coding Level of Care Code 67267 Subseq Hosp Care Lvl 2 Diagnoses Left-sided low back pain with left-sided sciatica M54.42 Chronicity: acute Diabetes mellitus E11.9 Constipation K59.00 Osteoarthritis M19.90 DVT prophylaxis Z29.9 (1) Left-sided low back pain with left-sided sciatica Chronicity: acute Qualified Code(s): M54.42 - Lumbago with sciatica, left side
[2020-11-06] MEDS: INSULIN GLARGINE SOLOSTAR 100 UNITS/ML 3 ML PEN SC SCH (12:02)
[2020-11-06] MEDS: ADVANCED PROBIOTIC 1250 MG CAPSULE PO SCH (21:14)
[2020-11-07] MEDS: ACETAMINOPHEN 325 MG TAB PO PRN ×5 (05:03→22:09)
[2020-11-07] MEDS: INSULIN ASPART 100 UNITS/ML 3 ML PEN SC SCH ×4 (09:10→20:33)
[2020-11-07] MEDS: CHOLECALCIFEROL 1,000 UNITS 25 MCG TAB PO SCH (09:11)
[2020-11-07] MEDS: INSULIN GLARGINE SOLOSTAR 100 UNITS/ML 3 ML PEN SC SCH (09:12)
[2020-11-07] MEDS: POLYETHYLENE (MIRALAX) 17 GM PACK PO SCH ×2 (09:13→20:25)
[2020-11-07] MEDS: DOCUSATE SODIUM/SENNA 50/8.6MG TAB PO SCH ×2 (09:13→20:25)
[2020-11-07] MEDS: MULTIVITAMIN TAB PO SCH (09:13)
[2020-11-07] MEDS ORDERED: DOCUSATE SODIUM 100 MG CAP PO ONE (10:54)
--- NOTE | 2020-11-07 10:56 | Orthopedic Progress Note ---
Date of Service November 07, 2020 Assessment & Plan (1) Lumbar disc herniation with radiculopathy: Plan: At this time will make the patient n.p.o. after midnight. We reviewed the surgical procedure tomorrow to require lumbar decompression L3-L4 with excision of herniated free fragment. Admission and Anticipated Discharge Date Admission Date: November 05, 2020 Subjective Patient continues to complain of severe left leg radiculopathy. Patient requiring narcotic medications to control her pain. Continues no difficulty with ambulation. Physical Exam Physical Exam: Patient is sitting up in the side of the bed. This is her uncomfortable position. She continues to exhibit quad deficit on the left compared to the right. Results & Data ([facility]) Vital Signs (Past 12 Hours) Vital Signs Temp Pulse Resp BP Pulse Ox 11/07/20 07:36 36.9 C 81 18 130/74 95
--- NOTE | 2020-11-07 12:38 | Hospitalist Progress Note ---
Date of Service November 07, 2020 Assessment & Plan (1) Left-sided low back pain with left-sided sciatica: Plan: Lumbar radiculopathy with HNP at L4-5 with impingement L4 nerve root with severe pain and numbness down left lower extremity Reviewed case with orthopedic spine surgeon on the phone-needs decompression -Admit for pain control -Patient reports significant hypertension with minimal doses of prednisone in the past-we will avoid steroids-she did receive one dose of Decadron 10mg IV in ER -Continue oxycodone 5 to 10 mg p.o. every 6 hours as needed for moderate to severe pain, IV Dilaudid as needed severe pain, Tylenol for mild to moderate pain -Orthopedic spine surgery consultation appreciated- plan for surgery on Sunday- patient is agreeable to this SHe is able to achieve 4METS prior to this without any problems, no CAD or renal issues ECG with nonspecific TW abnormality in anterior leads unchanged from previous -She is at average cardiovascular perioperative risk for this intermediate risk procedure and should proceed with surgery as planned (2) Diabetes mellitus: Plan: Hemoglobin A1c last checked in 10/2019 was 7.3%, but now is up to 8.7% She uses diet control at home but has recently gained more weight Blood sugar in the 160s on arrival and due to IV Decadron in ER, now improved on insulin Diabetic diet Accu-Cheks before every meal and at bedtime NovoLog supplemental insulin, started Lantus 5 units daily (3) Constipation: Plan: With a previous history of severe opioid-induced constipation now s/p numerous BMs on 11/06 after mag citrate -cont MiraLAX twice daily, senna/docusate twice daily (4) Osteoarthritis: Plan: Pain control as needed (5) DVT prophylaxis: Plan: SCDs Disposition-continued stay medical/surgical floor, awaiting lumbar spine surgery Sunday, then dc after recovered likely -Sun Full code, but would not want prolonged life support in the event of end-stage condition Admission and Anticipated Discharge Date Admission Date: November 05, 2020 Subjective Patient reports she was having quite a bit of pain earlier but is now improved with Tylenol. She had greater than 10 bowel movements yesterday and threw up half the magnesium citrate but feels much better today. No chest pain or shortness of breath, no nausea. She is eating her lunch. She feels better after talking to orthopedic surgery today about her upcoming back surgery tomorrow. Review of Systems Review of Systems: All systems reviewed & are unremarkable except as noted in HPI & below Physical Exam Constitutional: WD/WN, vitals as above Eyes: + anicteric sclerae ENMT: external ear and nose normal, oropharynx normal Neck: trachea midline, no thyromegaly Respiratory: normal respiratory effort, lungs clear to auscultation Cardiovascular: RRR, no murmur, no edema Chest (Breasts): Chest: normal inspection of chest Gastrointestinal (Abdomen): normal bowel sounds, soft, nontender, no hepatosplenomegaly Musculoskeletal: Extremities: extremities normal to inspection; no cyanosis and no clubbing Skin: no rashes, warm and dry Neurologic: awake Motor/Sensory: no tremor and no sensory deficit Psychiatric: A+Ox3, euthymic affect Lymphatic: no lymphedema Results & Data Results & Data ([facility]) Vital Signs (Past 12 Hours) Vital Signs Temp Pulse Resp BP Pulse Ox 11/07/20 07:36 36.9 C 81 18 130/74 95 Laboratory Results 11/07/20 11/07/20 11/06/20 Range/Units 12:25 08:24 20:34 POC Glucose 90 121 H 176 H (70-99) mg/dl 11/06/20 Range/Units 17:37 POC Glucose 152 H (70-99) mg/dl PG Care Time/CCT Total # of Minutes Spent Total Time Spent with Patient: Total time spent is greater than 50% in coordination of care (as documented) at patient's floor/unit and/or counseling patient: Coding Level of Care Code 94498 Subseq Hosp Care Lvl 2 Diagnoses Left-sided low back pain with left-sided sciatica M54.42 Chronicity: acute Diabetes mellitus E11.9 Constipation K59.00 Osteoarthritis M19.90 DVT prophylaxis Z29.9 (1) Left-sided low back pain with left-sided sciatica Chronicity: acute Qualified Code(s): M54.42 - Lumbago with sciatica, left side
[2020-11-07] MEDS: ADVANCED PROBIOTIC 1250 MG CAPSULE PO SCH (20:26)
[2020-11-07] MEDS: oxyCODONE HCL IR 5 MG TAB (IMMEDIATE RELEASE) PO PRN (22:09)
[2020-11-08] MEDS: ACETAMINOPHEN 325 MG TAB PO PRN ×2 (02:42→08:35)
[2020-11-08] MEDS ORDERED: Nursing to Pharmacy Communication SCH ×2 (04:15→22:30)
[2020-11-08] MEDS: INSULIN ASPART 100 UNITS/ML 3 ML PEN SC SCH ×4 (06:02→23:45)
[2020-11-08] MEDS: DOCUSATE SODIUM/SENNA 50/8.6MG TAB PO SCH ×2 (08:27→21:18)
[2020-11-08] MEDS: MULTIVITAMIN TAB PO SCH (08:27)
[2020-11-08] MEDS: POLYETHYLENE (MIRALAX) 17 GM PACK PO SCH ×2 (08:27→21:18)
[2020-11-08] MEDS: CHOLECALCIFEROL 1,000 UNITS 25 MCG TAB PO SCH (08:27)
[2020-11-08] MEDS: INSULIN GLARGINE SOLOSTAR 100 UNITS/ML 3 ML PEN SC SCH (08:29)
[2020-11-08] MEDS: oxyCODONE HCL IR 5 MG TAB (IMMEDIATE RELEASE) PO PRN ×2 (10:52→23:50)
--- NOTE | 2020-11-08 12:30 | Anesthesiology Consultation ---
Date of Service November 08, 2020 Assessment & Plan (1) Encounter for pre-operative examination: Chart Review Chart Review: Acceptable Risk for Surgery and Patient NOT seen in Pre Admission Testing Consults Requested none History Surgery Operation Date: 11/08/20 14:15 Proposed Procedures p L3-L4 Decompression Fusion - Ramo Mccullough DO Height/Weight Height: 5 ft 1 in Weight: 79.832 kg Allergies Allergy/AdvReac Type Severity Reaction Status Date / Time codeine Allergy Intermediate vomiting Verified 11/05/20 02:35 Sulfa (Sulfonamide Allergy Intermediate hives Verified 11/05/20 02:35 Antibiotics) tramadol AdvReac NAUSEA/VOMI Unverified 11/05/20 02:35 TING Medications Home Medications Medication Instructions Recorded Confirmed Last Taken cholecalciferol (vitamin D3) 125 250 mcg PO QAM 11/07/19 11/05/20 12/08/19 09:00 mcg (5,000 unit) tablet (Vitamin D3) lactobacillus combination no.4 3 3,000 mmu cells PO HS 11/07/19 11/05/20 12/08/19 20:00 billion cell capsule (Probiotic) multivitamin 1 cap PO QAM 11/07/19 11/05/20 12/08/19 09:00 oxycodone 5 mg tablet 5 - 10 mg PO Q6H PRN #30 tab MDD 6 12/10/19 11/05/20 Unknown TABS/24H sennosides 8.6 mg-docusate sodium 2 tab-cap PO BID PRN #60 tab 12/19/19 11/05/20 Unknown 50 mg tablet (Senokot-S) Active Medications Generic Name Dose Route Start Last Admin Trade Name Freq PRN Reason Stop Dose Admin Acetaminophen 650 mg 11/05/20 17:32 11/08/20 08:35 Acetaminophen 325 Mg Tab PO 12/05/20 17:31 650 mg Q4H PRN Administration pain/fever Hydromorphone HCl 0.5 mg 11/05/20 17:32 11/05/20 21:32 Hydromorphone Inj 0.5 Mg/0.5 Ml Syr IV 11/19/20 17:31 0.5 mg Q4 PRN Administration severe pain Insulin Aspart 0 units 11/08/20 06:00 11/08/20 06:02 Insulin Aspart 100 Units/Ml 3 Ml Pen SC 12/08/20 05:59 Not Given Q6 RAYRAY Insulin Glargine 5 units 11/06/20 10:00 11/08/20 08:29 Insulin Glargine Solostar 100 Units/Ml 3 Ml Pen SC 12/06/20 09:59 5 units DAILY RAYRAY Administration Lactobacillus Acidoph/Casei/Rhamnos 2 cap 11/05/20 21:00 11/07/20 20:26 Advanced Probiotic 1250 Mg Capsule PO 12/05/20 20:59 2 cap HS RAYRAY Administration Multivitamins 1 tab 11/06/20 09:00 11/08/20 08:27 Multivitamin Tab PO 12/06/20 08:59 Not Given QAM RAYRAY Oxycodone HCl 5 - 10 mg 11/05/20 17:32 11/08/20 10:52 Oxycodone Hcl Ir 5 Mg Tab (Immediate Release) PO 11/19/20 17:31 5 mg Q6H PRN Administration pain Polyethylene Glycol 17 gm 11/05/20 17:32 11/08/20 08:27 Polyethylene (Miralax) 17 Gm Pack PO 12/05/20 17:31 Not Given BID RAYRAY Senna/Docusate Sodium 2 tab 11/05/20 21:00 11/08/20 08:27 Docusate Sodium/Senna 50/8.6mg Tab PO 12/05/20 20:59 Not Given BID RAYRAY Vitamin D 10,000 units 11/06/20 09:00 11/08/20 08:27 Cholecalciferol 1,000 Units 25 Mcg Tab PO 12/06/20 08:59 Not Given QAM RAYRAY NPO Date Last Intake of Fluids: 11/08/20 Time Last Intake of Fluids: 02:42 Last Intake of Fluids Comment: sip of water with PO meds Past Medical History Medical History Chronic back pain Diabetes mellitus Lyme disease Osteoarthritis Pre-diabetes weight loss and diet and no meds; A1C up to 7.3% on pre op labs -- forwarded to PCP for follow-up. Exercise / Class Metabolic Activity II 4-5 Yardwork/Stairs/Walk up hill (denies CP or SOB) Past Family History Family History Other Family history non-contributory Past Surgical History Surgical History History of open reduction and internal fixation (ORIF) procedure left elbow History of total left knee replacement History of total right knee replacement Hx of appendectomy Hx of hysterectomy Hx of tonsillectomy PONV (postoperative nausea and vomiting) Social History Smoking Status: Never smoker Hx Alcohol Use: No Hx Substance Use: No substance use type: does not use Physical Exam Vital Signs Last Vital Signs Temp 36.6 C 11/08/20 06:35 Pulse 79 11/08/20 06:35 Resp 15 11/08/20 06:35 BP 135/73 11/08/20 06:35 Pulse Ox 96 11/08/20 06:35 Testing Laboratory Results 11/05/20 02:30 11/05/20 02:30 Hemoglobin A1c 8.7 % (4.5-5.6) H 11/06/20 06:46 11/08/20 05:55 POC Glucose 137 H Electrocardiogram Date: 11/05/20 Findings: + NSR @ (88) Nonspecific T wave abnormality Abnormal ECG When compared with ECG of 25-JUN-2015 12:02, Nonspecific T wave abnormality now evident in Inferior leads QT has lengthened
[2020-11-08] MEDS ORDERED: BUPIVACAINE/EPINEPHRINE 0.5% MPF 1:200,000 30 ML VIAL ONE (13:05)
[2020-11-08] MEDS ORDERED: fentaNYL citrate 100 MCG/2 ML VIAL ONE (13:10)
[2020-11-08] MEDS ORDERED: MIDAZOLAM HCL 1 MG/ML 2ML VIAL ONE (13:10)
[2020-11-08] MEDS ORDERED: ePHEDrine sulfate 50 MG/ML AMP IV PRN (13:35)
[2020-11-08] MEDS ORDERED: HYDROmorphone INJ 1 MG/ML SYRINGE IV PRN (13:35)
[2020-11-08] MEDS ORDERED: ONDANSETRON INJ 2 MG/ML 2 ML VIAL IV PRN ×2 (13:35→18:06)
[2020-11-08] MEDS ORDERED: ATROPINE SULFATE 0.1 MG/ML 10ML SYR IV PRN (13:35)
[2020-11-08] MEDS ORDERED: fentaNYL citrate 100 MCG/2 ML VIAL IV PRN (13:35)
--- NOTE | 2020-11-08 13:50 | History & Physical Bridge Note ---
Date of Service November 08, 2020 History & Physical Bridge Note I have examined the patient, reviewed the History & Physical and in the interval since the performance of the History & Physical I have noted the following changes of clinical significance: no changes noted
[2020-11-08] MEDS ORDERED: ceFAZolin 2,000 MG/15 ML IV PUSH IV ONE (13:56)
[2020-11-08] MEDS ORDERED: ceFAZolin 2000MG 2,000 MG/15 ML SYR IV ONE (13:57)
[2020-11-08] MEDS ORDERED: PROPOFOL IV EMULSION 10 MG/ML 20 ML VIAL IV ONE ×2 (14:23→14:24)
[2020-11-08] MEDS ORDERED: PHENYLEPHRINE 100MCG/ML 5ML SYR ONE (14:23)
[2020-11-08] MEDS ORDERED: LIDOCAINE 2% 2 ML VIAL/AMP(20MG/ML) INFIL ONE (14:23)
[2020-11-08] MEDS ORDERED: ROCURONIUM BROMIDE 10 MG/ML 5 ML VIAL IV ONE (14:23)
[2020-11-08] MEDS ORDERED: DEXAMETHASONE SOD INJ 4 MG/ML VIAL ONE (14:23)
[2020-11-08] MEDS ORDERED: NEOSTIGMINE METHYLSULFATE 1 MG/ML 10ML VIAL ONE (14:23)
[2020-11-08] MEDS ORDERED: GLYCOPYRROLATE 0.2 MG/ML VIAL ONE (14:23)
[2020-11-08] MEDS ORDERED: ONDANSETRON INJ 2 MG/ML 2 ML VIAL ONE (14:23)
[2020-11-08] MEDS ORDERED: FLOSEAL HEMOSTATIC MATRIX 10ML TOP ONE (14:35)
[2020-11-08] MEDS ORDERED: HYDROmorphone INJ 2 MG/ML SYR/VIAL ONE (14:46)
--- NOTE | 2020-11-08 15:03 | Operative Report ---
Post Operative Report Pre & Post Diagnosis Operation Date: 11/08/20 14:15 Pre-Op Diagnosis: Hernia nucleus pulposus L3-L4 with spinal stenosis L3-L4 Post-Op Diagnosis: Same I identified the patient and participated in the time-out.: Yes Procedure Operation Date: 11/08/20 14:15 Actual Procedures #1 lumbar decompression with bilateral medial facetectomies L3-L4 and excision of herniated free fragment. Surgeon Ramo Mccullough, Hydraulic Lift Driver Cherelle Salmeron Estimated Blood Loss 25 Findings Consistent with Post-Op Diagnosis Severe spinal stenosis with herniated was pulposis and free fragments on the left Specimens None Indications This is a very pleasant 70-year-old female presents the mario decline in status worsening leg pain and weakness to left lower extremity is here for the above- mentioned procedure. Description of Procedure Patient met with identified informed consent obtained. Patient was then taken to the operative suite underwent a patient placed in a prone position the Ryan table atop the Silvestre frame. All bony prominences well-padded eyes inspected to ensure no external pressure placed upon the bed this point lumbar spine was prepped and draped in a sterile fashion. Sharp dissection with the assistance of Bovie cautery performed down to and exposing the L3-L4 interlaminar space bilaterally. I then performed a midline decompression including bilateral medial facetectomies at L3 3 L4 addressing severe spinal stenosis. I then identified several loose fragments of disc material on the left compressing the traversing L3 nerve root. The area was explored several times to ensure all fragments addressed. The incision was then copiously irrigated 1500 inserted. Was then closed with 1 Vicryl to fascia 2-0 Vicryl subcutaneously and 4 Monocryl for final skin closure. Steri-Strip sterile dressings placed. Patient will continue to PACU stable condition. Please note Cherelle Salmeron was present at the entire procedure and all the patient positioning complex portions of the surgery and final skin closure. I attest to the content of the Intraoperative Record and any orders documented therein. Any exceptions are noted below.
--- NOTE | 2020-11-08 15:09 | Fluoroscopy Report ---
INTRAOPERATIVE RADIOGRAPHS CLINICAL HISTORY: L3-L4 decompression. Fluoroscopy time: 4 seconds. FINDINGS: 2 spot fluoroscopic views of the lumbar spine are presented. On the initial imaging a surgi arthur probe projects posteriorly at L3-L4. On the second image the probe projects posterior to the L4 v ertebral body. IMPRESSION: Intraoperative lumbar spine surgery images as above. Electronically signed by: Jun Keen M.D. 11/08/2020 3:07 PM
--- NOTE | 2020-11-08 16:00 | Anesthesiology Progress Note ---
Date of Service November 08, 2020 Anesthesia Post Procedure Vital Signs Vital Signs: Temp Pulse Pulse Resp BP Pulse Ox 11/08/20 15:45 89 14 151/85 H 97 11/08/20 15:35 91 H 14 150/91 H 98 11/08/20 15:27 36.2 C L 88 10 L 154/93 H 97 11/08/20 12:56 36.7 C 85 18 190/108 H 96 11/08/20 06:35 36.6 C 79 15 135/73 96 11/07/20 23:14 36.7 C 76 16 101/62 95 11/07/20 16:52 142/80 H 11/07/20 16:37 36.5 C 92 H 16 164/92 H 97 Pain Intensity Left Leg: Pain Intensity: 4 Back: Pain Intensity: 7 Transfer of Care Handoff Completed per policy Notes Mental Status: alert / awake / arousable and participated in evaluation Patient Amnestic to Procedure: Yes Nausea / Vomiting: adequately controlled Pain: adequately controlled Airway Patency, RR, SpO2: stable & adequate BP & HR: stable & adequate Hydration State: stable & adequate Anesthetic Complications: no major complications apparent and Pt Satisfied with anesthetic care Notes: Immediately after arriving in PACU, pt had a brief run of tachycardia. Run was too quick to catch on EKG. Telemetry strip printed. Pt hemodynamically stable during run and self resolved. Did not reoccur in PACU and no other apparent complications.
[2020-11-08] MEDS ORDERED: METOPROLOL TARTRATE 1 MG/ML VIAL IV STA ×2 (16:14→16:24)
[2020-11-08] MEDS ORDERED: METOPROLOL TARTRATE 1 MG/ML VIAL IV ONE ×2 (16:15→16:26)
--- NOTE | 2020-11-08 16:25 | Hospitalist Progress Note ---
Date of Service November 08, 2020 Assessment & Plan (1) Left-sided low back pain with left-sided sciatica: Plan: Lumbar radiculopathy with HNP at L4-5 with impingement L4 nerve root with severe pain and numbness down left lower extremity Reviewed case with orthopedic spine surgeon on the phone-needs decompression - oxycodone 5 to 10 mg p.o. every 6 hours as needed for moderate to severe pain, IV Dilaudid as needed severe pain, Tylenol for mild to moderate pain -Orthopedic spine surgery consultation appreciated- 11/08/20: lumbar decompression with bilateral medial facetectomies L3-L4 and excision of herniated free fragment with Dr. Mccullough tolerated well pain control, PT/OT, d/c planning with help of spine surgery check CBC and BMP in the morning (2) Atrial tachycardia: Plan: new onset post op, HR in the 100-120 range, no chest pain/pressure EKG with atrial tachycardia, non specific TW changes but these were evident prior to surgery troponin < 0.015 observe tonight on Agensys but if she is stable then go to surgical floor tomorrow (3) Diabetes mellitus: Plan: Hemoglobin A1c last checked in 10/2019 was 7.3%, but now is up to 8.7% She uses diet control at home but has recently gained more weight Blood sugar in the 160s on arrival and due to IV Decadron in ER, now improved on insulin Diabetic diet Accu-Cheks before every meal and at bedtime NovoLog supplemental insulin, started Lantus 5 units daily monitor closely for hypoglycemia (4) Constipation: Plan: With a previous history of severe opioid-induced constipation now s/p numerous BMs on 11/06 after mag citrate -cont MiraLAX twice daily, senna/docusate twice daily monitor for BM (5) Osteoarthritis: Plan: Pain control as needed (6) DVT prophylaxis: Plan: SCDs Disposition-continued stay medical/surgical floor, awaiting lumbar spine surgery Sunday, then dc after recovered likely -Sun Full code, but would not want prolonged life support in the event of end-stage condition Admission and Anticipated Discharge Date Admission Date: November 05, 2020 Subjective patient had L3-L4 decompression/fusion today, tolerated procedure well I was called by anesthesiologist in PACU due to sinus tachycardia, some TW inversions when going fast on EKG on admission she was noted to have some TW changes, non-specific patient without any chest pain/pressure, no dyspnea no nausea, only admits to being sleepy and having some moderate low back pain post op d/w anesthesiology, will put on med Edkimo to observe overnight prior to moving to the floor she dropped to 80bpm Review of Systems Review of Systems: All systems reviewed & are unremarkable except as noted in Subjective Musculoskeletal: + back pain (lumbar) Physical Exam Constitutional: WD/WN, vitals as above (sleepy as she is just waking from anesthesia) Neck: trachea midline, no thyromegaly Respiratory: normal respiratory effort, lungs clear to auscultation Cardiovascular: Rate/Rhythm: regular rhythm and + tachycardic Heart Sounds: normal S1 and normal S2; no murmur Vessels: normal peripheral pulses; no JVD Extremities: normal capillary refill; no edema Gastrointestinal (Abdomen): normal bowel sounds, soft, nontender, no hepatosplenomegaly Musculoskeletal: no cyanosis or clubbing, extremities motor strength 5/5 Skin: no rashes, warm and dry Neurologic: patellar DTR's 2+ bilat, sensation intact and PERRL, EOMI, accommodation nl, no face palsy, no dysarthria Psychiatric: A+Ox3, euthymic affect Results & Data Results & Data ([facility]) Vital Signs (Past 12 Hours) Vital Signs Temp Pulse Pulse Pulse Resp BP BP 11/08/20 16:20 111 H 18 145/96 H 11/08/20 16:16 127 H 162/97 H 11/08/20 16:15 127 H 20 162/97 H 11/08/20 16:05 80 18 160/89 H 11/08/20 15:55 36.2 C L 91 H 18 154/84 H 11/08/20 15:45 89 14 151/85 H 11/08/20 15:35 91 H 14 150/91 H 11/08/20 15:27 36.2 C L 88 10 L 154/93 H 11/08/20 12:56 36.7 C 85 18 190/108 H 11/08/20 06:35 36.6 C 79 15 135/73 Pulse Ox 11/08/20 16:20 97 11/08/20 16:16 11/08/20 16:15 97 11/08/20 16:05 96 11/08/20 15:55 96 11/08/20 15:45 97 11/08/20 15:35 98 11/08/20 15:27 97 11/08/20 12:56 96 11/08/20 06:35 96 Laboratory Results Laboratory Results - last 24 hr 11/07/20 11/07/20 11/08/20 17:37 20:30 05:55 POC Glucose 112 H 160 H 137 H 11/08/20 11/08/20 12:14 15:30 POC Glucose 134 H 157 H Medications Administered Current Inpatient Medications Acetaminophen (Acetaminophen 325 Mg Tab) 650 mg PO Q4H PRN PRN Reason: pain/fever Stop: 12/05/20 17:31 Last Admin: 11/08/20 08:35 Dose: 650 mg Documented by: Atropine Sulfate (Atropine Sulfate 0.1 Mg/Ml 10ml Syr) 0.5 mg IV Q1M PRN PRN Reason: PACU Use-HR<40 &/or Bradycardi Stop: 11/08/20 21:35 Dextrose (Dextrose 50% 50 Ml Syringe) 25 - 50 ml IV UD PRN; Protocol PRN Reason: Hypoglycemia Protocol Stop: 12/05/20 17:31 Ephedrine Sulfate (Ephedrine Sulfate 50 Mg/Ml Amp) 5 mg IV Q5M PRN PRN Reason: PACU Use Only-SBP<90 mmHg Stop: 11/08/20 21:35 Fentanyl Citrate (Fentanyl Citrate 100 Mcg/2 Ml Vial) 50 mcg IV Q5M PRN PRN Reason: PACU Use Only-Pain Stop: 11/08/20 21:35 Glucagon (Glucagon For Inj 1 Mg Vial) 1 mg SQ UD PRN; Protocol PRN Reason: Hypoglycemia Protocol Stop: 12/05/20 17:31 Glucose (Glucose 10 Tabs/Tube) 4 - 8 tabs PO UD PRN; Protocol PRN Reason: Hypoglycemia Protocol Stop: 12/05/20 17:31 Glucose (Glucose 40% Gel 15 Gm Tube) 15 - 30 gm PO UD PRN; Protocol PRN Reason: Hypoglycemia Protocol Stop: 12/05/20 17:31 Hydromorphone HCl (Hydromorphone Inj 0.5 Mg/0.5 Ml Syr) 0.5 mg IV Q4 PRN PRN Reason: severe pain Stop: 11/19/20 17:31 Last Admin: 11/05/20 21:32 Dose: 0.5 mg Documented by: Hydromorphone HCl (Hydromorphone Inj 1 Mg/Ml Syringe) 0.25 mg IV Q5M PRN PRN Reason: PACU Use Only-Pain Stop: 11/08/20 21:35 Insulin Aspart (Insulin Aspart 100 Units/Ml 3 Ml Pen) 0 units SC Q6 RAYRAY Stop: 12/08/20 05:59 Last Admin: 11/08/20 12:41 Dose: Not Given Documented by: Insulin Glargine (Insulin Glargine Solostar 100 Units/Ml 3 Ml Pen) 5 units SC DAILY RAYRAY Stop: 12/06/20 09:59 Last Admin: 11/08/20 08:29 Dose: 5 units Documented by: Lactobacillus Acidoph/Casei/Rhamnos (Advanced Probiotic 1250 Mg Capsule) 2 cap PO HS RAYRAY Stop: 12/05/20 20:59 Last Admin: 11/07/20 20:26 Dose: 2 cap Documented by: Metoprolol Tartrate (Metoprolol Tartrate 1 Mg/Ml Vial) 5 mg IV NOW STA Stop: 11/08/20 16:15 Last Admin: 11/08/20 16:16 Dose: 5 mg Documented by: Metoprolol Tartrate (Metoprolol Tartrate 1 Mg/Ml Vial) 5 mg IV NOW STA Stop: 11/08/20 16:25 Miscellaneous (Carbohydrates For Hypoglycemia ) 15 - 30 gm PO UD PRN PRN Reason: Hypoglycemia Protocol Stop: 12/05/20 17:31 Multivitamins (Multivitamin Tab) 1 tab PO QAM RAYRAY Stop: 12/06/20 08:59 Last Admin: 11/08/20 08:27 Dose: Not Given Documented by: Ondansetron HCl (Ondansetron Inj 2 Mg/Ml 2 Ml Vial) 4 mg IV Q6H PRN PRN Reason: Nausea Stop: 12/05/20 17:31 Ondansetron HCl (Ondansetron Inj 2 Mg/Ml 2 Ml Vial) 4 mg IV ONCE PRN PRN Reason: PACU Use Only-Nausea/Vomiting Stop: 11/08/20 21:36 Oxycodone HCl (Oxycodone Hcl Ir 5 Mg Tab (Immediate Release)) 5 - 10 mg PO Q6H PRN PRN Reason: pain Stop: 11/19/20 17:31 Last Admin: 11/08/20 10:52 Dose: 5 mg Documented by: Polyethylene Glycol (Polyethylene (Miralax) 17 Gm Pack) 17 gm PO BID [facility] Stop: 12/05/20 17:31 Last Admin: 11/08/20 08:27 Dose: Not Given Documented by: Senna/Docusate Sodium (Docusate Sodium/Senna 50/8.6mg Tab) 2 tab PO BID [facility] Stop: 12/05/20 20:59 Last Admin: 11/08/20 08:27 Dose: Not Given Documented by: Vitamin D (Cholecalciferol 1,000 Units 25 Mcg Tab) 10,000 units PO QAM [facility] Stop: 12/06/20 08:59 Last Admin: 11/08/20 08:27 Dose: Not Given Documented by: PG Care Time/CCT Total # of Minutes Spent Total Time Spent with Patient: Total time spent is greater than 50% in coordination of care (as documented) at patient's floor/unit and/or counseling patient: Coding Level of Care Code 35171 Subseq Hosp Care Lvl 3 Diagnoses Left-sided low back pain with left-sided sciatica M54.42 Chronicity: acute Diabetes mellitus E11.9 Constipation K59.00 Osteoarthritis M19.90 DVT prophylaxis Z29.9 Atrial tachycardia I47.1 (1) Left-sided low back pain with left-sided sciatica Chronicity: acute Qualified Code(s): M54.42 - Lumbago with sciatica, left side
[2020-11-08] MEDS ORDERED: hydrOXYzine HCl 25 MG TAB PO PRN (18:06)
[2020-11-08] MEDS ORDERED: METOCLOPRAMIDE HCL INJ 5 MG/ML 2 ML VIAL IV PRN (18:06)
[2020-11-08] MEDS ORDERED: SOD PHOSPHATE/SOD BIPHOSPHATE ENEMA 132 ML BTL PR PRN (18:06)
[2020-11-08] MEDS ORDERED: diphenhydrAMINE Capsule 25 MG CAP PO PRN (18:06)
[2020-11-08] MEDS ORDERED: ACETAMINOPHEN 1,000 MG/100 ML VIAL IV PRN (18:06)
[2020-11-08] MEDS ORDERED: LORazepam 0.5 MG TAB PO PRN (18:06)
[2020-11-08] MEDS ORDERED: FAMOTIDINE 20 MG TAB PO PRN (18:06)
[2020-11-08] MEDS ORDERED: ALUMINUM/MAGNESIUM SUSP 30 ML UDC PO PRN (18:06)
[2020-11-08] MEDS ORDERED: PROMETHAZINE HCL 12.5 MG in SODIUM CHLORIDE 0.9% 50 ML IV PRN (18:06)
[2020-11-08] MEDS ORDERED: ONDANSETRON 4 MG OD TAB PO PRN (18:06)
[2020-11-08] MEDS ORDERED: MAGNESIUM HYDROXIDE SUSP 30 ML UDC PO PRN (18:06)
[2020-11-08] MEDS ORDERED: LORazepam 0.5 MG/1 ML VIAL IV PRN (18:06)
[2020-11-08] MEDS ORDERED: DO NOT ADMINISTER FLU VACCINE PRN (18:06)
[2020-11-08] MEDS ORDERED: NALOXONE HCL 0.4 MG/1 ML VIAL/CARP IV PRN (18:06)
[2020-11-08] MEDS ORDERED: DO NOT ADMINISTER PNEUMOCOCCAL VACCINE PRN (18:06)
[2020-11-08] MEDS: SODIUM CHLORIDE 0.9% 1000ML 1,000 ML IV SCH (18:18)
[2020-11-08] MEDS: HYDROmorphone INJ 0.5 MG/0.5 ML SYR IV PRN (18:58)
[2020-11-08] MEDS ORDERED: DOCUSATE SODIUM/SENNA 50/8.6MG TAB PO SCH (21:00)
[2020-11-08] MEDS: ADVANCED PROBIOTIC 1250 MG CAPSULE PO SCH (21:18)
[2020-11-08] MEDS: ceFAZolin 2000MG 2,000 MG/15 ML SYR IV SCH (22:20)
[2020-11-09] MEDS: SODIUM CHLORIDE 0.9% 1000ML 1,000 ML IV SCH (04:15)
[2020-11-09] MEDS: HYDROmorphone INJ 0.5 MG/0.5 ML SYR IV PRN (05:03)
[2020-11-09] MEDS: ceFAZolin 2000MG 2,000 MG/15 ML SYR IV SCH (05:57)
[2020-11-09] MEDS: POLYETHYLENE (MIRALAX) 17 GM PACK PO SCH ×6 (05:57→23:32)
[2020-11-09 08:35] LABS: Mean Corpuscular Hemoglobin 28.8 pg (25-34); Mean Corpuscular Hgb Conc 33.3 g/dL (32-36); Mean Corpuscular Volume 86.4 fL (80-100); Mean Platelet Volume 9.9 fL (7.4-10.4); Platelet Count 310 K/uL (130-400); RDW Coefficient of Variation 13.8 % (11.5-14.5); RDW Standard Deviation 43.5 fL (36.4-46.3); Red Blood Count 4.86 M/uL (4.2-5.4); White Blood Count 14.14 K/uL (4.8-10.8)
[2020-11-09 09:03] LABS: BUN Creatinine Ratio 15.9 (10-20); Calcium 8.8 mg/dl (8.5-10.1); Creatinine Clr Calc Pharmacy 64.9 ml/min; Est GFR (African American) 92.3 ml/min; Est GFR (Non-African American) 79.6 ml/min; Potassium 3.8 mmol/L (3.5-5.1)
[2020-11-09] MEDS: DOCUSATE SODIUM/SENNA 50/8.6MG TAB PO SCH ×2 (09:15→20:20)
[2020-11-09] MEDS: INSULIN GLARGINE SOLOSTAR 100 UNITS/ML 3 ML PEN SC SCH (09:16)
[2020-11-09] MEDS: MULTIVITAMIN TAB PO SCH (09:17)
[2020-11-09] MEDS: INSULIN ASPART 100 UNITS/ML 3 ML PEN SC SCH ×4 (09:19→20:52)
[2020-11-09] MEDS: CHOLECALCIFEROL 1,000 UNITS 25 MCG TAB PO SCH (09:19)
[2020-11-09] MEDS: oxyCODONE HCL IR 5 MG TAB (IMMEDIATE RELEASE) PO PRN ×2 (11:07→17:26)
--- NOTE | 2020-11-09 11:25 | Hospitalist Progress Note ---
Date of Service November 09, 2020 Assessment & Plan (1) Left-sided low back pain with left-sided sciatica: Plan: Lumbar radiculopathy with HNP at L4-5 with impingement L4 nerve root with severe pain and numbness down left lower extremity - oxycodone 5 to 10 mg p.o. every 6 hours as needed for moderate to severe pain, IV Dilaudid as needed severe pain, Tylenol for mild to moderate pain -Orthopedic spine surgery consultation appreciated- 11/08/20: lumbar decompression with bilateral medial facetectomies L3-L4 and excision of herniated free fragment with Dr. Mccullough tolerated well vitals stable today, Hb 14, no more radicular pain, just mild low back pain, NAVA drain in place stop IV fluids, remove rodríguez, she is ambulating in halls advance her diet (2) Atrial tachycardia: Plan: new onset post op, HR in the 100-120 range, no chest pain/pressure EKG with atrial tachycardia, non specific TW changes but these were evident prior to surgery troponin < 0.015 observe tonight on Stratus5, no further issues, resting HR is < 100 today move to surgical floor of monitor (3) Diabetes mellitus: Plan: Hemoglobin A1c last checked in 10/2019 was 7.3%, but now is up to 8.7% She uses diet control at home but has recently gained more weight Blood sugar in the 160s on arrival and due to IV Decadron in ER, now improved on insulin Diabetic diet Accu-Cheks before every meal and at bedtime NovoLog supplemental insulin, started Lantus 5 units daily monitor closely for hypoglycemia, sugar 119 this morning (4) Constipation: Plan: With a previous history of severe opioid-induced constipation now s/p numerous BMs on 11/06 after mag citrate -cont MiraLAX twice daily, senna/docusate twice daily monitor for BM, she is passing flatus today but no BM, not surprising as she was NPO for surgery (5) Osteoarthritis: Plan: Pain control as needed (6) DVT prophylaxis: Plan: SCDs Disposition-continued stay medical/surgical floor, awaiting lumbar spine surgery Sunday, then dc after recovered likely -Sun Full code, but would not want prolonged life support in the event of end-stage condition Admission and Anticipated Discharge Date Admission Date: November 05, 2020 Subjective patient feels great today, ambulating in halls, the left sided radicular pain she had is completely gone, only has some low back pain from surgery breathing well, no chest pain, no fever, no cough reviewed labs, WBC 14k, Hb 14, Cr 0.75 and K 3.8 HR on the monitor is < 100 when resting, goes up to 100s when walking, sinus tach, can stop tele tolerating liquids, + flatus, she wants to try to eat dinner Review of Systems Review of Systems: All systems reviewed & are unremarkable except as noted in Subjective Physical Exam Constitutional: WD/WN, vitals as above (sleepy as she is just waking from anesthesia) Neck: trachea midline, no thyromegaly Respiratory: normal respiratory effort, lungs clear to auscultation Cardiovascular: Rate/Rhythm: regular rate and regular rhythm Heart Sounds: normal S1 and normal S2; no murmur Vessels: normal peripheral pulses; no JVD Extremities: normal capillary refill; no edema Gastrointestinal (Abdomen): normal bowel sounds, soft, nontender, no hepatosplenomegaly Musculoskeletal: no cyanosis or clubbing, extremities motor strength 5/5 Skin: no rashes, warm and dry Neurologic: patellar DTR's 2+ bilat, sensation intact and PERRL, EOMI, accommodation nl, no face palsy, no dysarthria Psychiatric: A+Ox3, euthymic affect Results & Data Results & Data ([facility]) Vital Signs (Past 12 Hours) Vital Signs Temp Pulse Pulse Resp BP Pulse Ox 11/09/20 07:45 36.4 C L 85 20 156/92 H 97 11/09/20 07:15 70 11/09/20 03:12 36.4 C L 86 16 153/83 H 93 11/09/20 01:58 81 11/09/20 01:55 83 11/09/20 00:04 36.7 C 58 L 18 135/66 98 Laboratory Results Laboratory Results - last 24 hr 11/08/20 11/08/20 11/08/20 12:14 15:30 16:22 WBC RBC Hgb Hct MCV MCH MCHC RDW Std Deviation RDW Coeff of Albina Plt Count MPV Sodium Potassium Chloride Carbon Dioxide Anion Gap BUN Creatinine Est Cr Clr Drug Dosing Est GFR ( Amer) Est GFR (Non-Af Amer) BUN/Creatinine Ratio Glucose POC Glucose 134 H 157 H Calcium Troponin I < 0.015 11/08/20 11/08/20 11/09/20 18:08 23:42 07:34 WBC RBC Hgb Hct MCV MCH MCHC RDW Std Deviation RDW Coeff of Albina Plt Count MPV Sodium Potassium Chloride Carbon Dioxide Anion Gap BUN Creatinine Est Cr Clr Drug Dosing Est GFR ( Amer) Est GFR (Non-Af Amer) BUN/Creatinine Ratio Glucose POC Glucose 201 H 170 H 119 H Calcium Troponin I 11/09/20 11/09/20 08:19 08:19 WBC 14.14 H RBC 4.86 Hgb 14.0 Hct 42.0 MCV 86.4 MCH 28.8 MCHC 33.3 RDW Std Deviation 43.5 RDW Coeff of Albina 13.8 Plt Count 310 MPV 9.9 Sodium 139 Potassium 3.8 Chloride 107 Carbon Dioxide 27 Anion Gap 5.0 BUN 12 Creatinine 0.75 Est Cr Clr Drug Dosing 64.9 Est GFR ( Amer) 92.3 Est GFR (Non-Af Amer) 79.6 BUN/Creatinine Ratio 15.9 Glucose 156 H POC Glucose Calcium 8.8 Troponin I Medications Administered Current Inpatient Medications Acetaminophen (Acetaminophen 325 Mg Tab) 650 mg PO Q4H PRN PRN Reason: pain/fever Stop: 12/05/20 17:31 Last Admin: 11/08/20 08:35 Dose: 650 mg Documented by: Acetaminophen (Acetaminophen 500 Mg Tab) 1,000 mg PO Q8H PRN PRN Reason: MILD Pain Scale 1,2,3 & Pre PT Stop: 12/08/20 18:05 Al Hydrox/Mg Hydrox/Simethicone (Aluminum/Magnesium Susp 30 Ml Udc) 30 ml PO Q6H PRN PRN Reason: Dyspepsia Stop: 12/08/20 18:05 Bisacodyl (Bisacodyl 10 Mg Supp) 10 mg CO DAILY PRN PRN Reason: Constipation Stop: 12/10/20 07:59 Dextrose (Dextrose 50% 50 Ml Syringe) 25 - 50 ml IV UD PRN; Protocol PRN Reason: Hypoglycemia Protocol Stop: 12/05/20 17:31 Diphenhydramine HCl (Diphenhydramine Capsule 25 Mg Cap) 25 mg PO Q6H PRN PRN Reason: Allergic Rhinitis/Insomnia Stop: 12/08/20 18:05 Famotidine (Famotidine 20 Mg Tab) 20 mg PO Q12H PRN PRN Reason: Dyspepsia Stop: 12/08/20 18:05 Glucagon (Glucagon For Inj 1 Mg Vial) 1 mg SQ UD PRN; Protocol PRN Reason: Hypoglycemia Protocol Stop: 12/05/20 17:31 Glucose (Glucose 10 Tabs/Tube) 4 - 8 tabs PO UD PRN; Protocol PRN Reason: Hypoglycemia Protocol Stop: 12/05/20 17:31 Glucose (Glucose 40% Gel 15 Gm Tube) 15 - 30 gm PO UD PRN; Protocol PRN Reason: Hypoglycemia Protocol Stop: 12/05/20 17:31 Hydromorphone HCl (Hydromorphone Inj 0.5 Mg/0.5 Ml Syr) 0.5 mg IV Q4 PRN PRN Reason: severe pain Stop: 11/19/20 17:31 Last Admin: 11/09/20 05:03 Dose: 0.5 mg Documented by: Hydroxyzine HCl (Hydroxyzine Hcl 25 Mg Tab) 25 mg PO Q8H PRN PRN Reason: Anxiety Stop: 12/08/20 18:05 Acetaminophen (Ofirmev) 1,000 mg in 100 mls @ 400 mls/hr IV Q8H PRN PRN Reason: Pain Rating 1-3 & Pre PT Stop: 11/11/20 18:05 Last Infusion: 11/09/20 04:12 Dose: Infused Documented by: Lorazepam (Ativan) 0.5 mg in 1 mls @ 1 mls/min IV Q8H PRN PRN Reason: Sedation/Anxiety Stop: 12/08/20 18:05 Sodium Chloride (Nss 1000ml) 1,000 mls @ 100 mls/hr IV .Q10H RAYRAY Stop: 12/08/20 18:05 Last Admin: 11/09/20 04:15 Dose: 100 mls/hr Documented by: Promethazine HCl 12.5 mg/ (Sodium Chloride) 50.5 mls @ 202 mls/hr IV Q6H PRN PRN Reason: Nausea &/or Vomiting Stop: 12/08/20 18:05 Influenza Virus Vaccine Quadrival (Do Not Administer Flu Vaccine) 1 ea N/A PRN PRN PRN Reason: Notification Stop: 12/08/20 18:05 Insulin Aspart (Insulin Aspart 100 Units/Ml 3 Ml Pen) 0 units SC ACHS [facility] Stop: 12/08/20 05:59 Last Admin: 11/09/20 09:19 Dose: Not Given Documented by: Insulin Glargine (Insulin Glargine Solostar 100 Units/Ml 3 Ml Pen) 5 units SC DAILY [facility] Stop: 12/06/20 09:59 Last Admin: 11/09/20 09:16 Dose: 5 units Documented by: Lactobacillus Acidoph/Casei/Rhamnos (Advanced Probiotic 1250 Mg Capsule) 2 cap PO HS RAYRAY Stop: 12/05/20 20:59 Last Admin: 11/08/20 21:18 Dose: 2 cap Documented by: Lorazepam (Lorazepam 0.5 Mg Tab) 0.5 mg PO Q8H PRN PRN Reason: sedation/anxiety Stop: 12/08/20 18:05 Magnesium Hydroxide (Magnesium Hydroxide Susp 30 Ml Udc) 30 ml PO Q24H PRN PRN Reason: Constipation Stop: 12/08/20 18:05 Metoclopramide HCl (Metoclopramide Hcl Inj 5 Mg/Ml 2 Ml Vial) 10 mg IV Q6H PRN PRN Reason: Nausea &/or Vomiting Stop: 12/08/20 18:05 Miscellaneous (Carbohydrates For Hypoglycemia ) 15 - 30 gm PO UD PRN PRN Reason: Hypoglycemia Protocol Stop: 12/05/20 17:31 Multivitamins (Multivitamin Tab) 1 tab PO QAM [facility] Stop: 12/06/20 08:59 Last Admin: 11/09/20 09:17 Dose: 1 tab Documented by: Naloxone HCl (Naloxone Hcl 0.4 Mg/1 Ml Vial/Carp) 0.1 mg IV Q5M PRN PRN Reason: Oversedation/respiratory dep Stop: 12/08/20 18:05 Ondansetron HCl (Ondansetron Inj 2 Mg/Ml 2 Ml Vial) 4 mg IV Q6H PRN PRN Reason: Nausea Stop: 12/05/20 17:31 Last Admin: 11/08/20 18:18 Dose: 4 mg Documented by: Ondansetron HCl (Ondansetron Inj 2 Mg/Ml 2 Ml Vial) 4 mg IV Q6H PRN PRN Reason: Nausea &/or Vomiting Stop: 12/08/20 18:05 Ondansetron HCl (Ondansetron 4 Mg Od Tab) 4 mg PO Q6H PRN PRN Reason: Nausea Stop: 12/08/20 18:05 Oxycodone HCl (Oxycodone Hcl Ir 5 Mg Tab (Immediate Release)) 5 - 10 mg PO Q6H PRN PRN Reason: pain Stop: 11/19/20 17:31 Last Admin: 11/09/20 11:07 Dose: 5 mg Documented by: Pneumococcal Polyvalent Vaccine (Do Not Administer Pneumococcal Vaccine) 1 ea N/A PRN PRN PRN Reason: Notification Stop: 12/08/20 18:05 Polyethylene Glycol (Polyethylene (Miralax) 17 Gm Pack) 17 gm PO BID RAYRAY Stop: 12/05/20 17:31 Last Admin: 11/09/20 09:15 Dose: 17 gm Documented by: Polyethylene Glycol (Polyethylene (Miralax) 17 Gm Pack) 17 gm PO Q6 RAYRAY Stop: 12/09/20 05:59 Last Admin: 11/09/20 05:57 Dose: 17 gm Documented by: Senna/Docusate Sodium (Docusate Sodium/Senna 50/8.6mg Tab) 2 tab PO BID RAYRAY Stop: 12/05/20 20:59 Last Admin: 11/09/20 09:15 Dose: 2 tab Documented by: Sodium Biphosphate/Sodium Phosphate (Sod Phosphate/Sod Biphosphate Enema 132 Ml Btl) 132 ml CO ONE PRN PRN Reason: Constipation Stop: 12/08/20 18:05 Vitamin D (Cholecalciferol 1,000 Units 25 Mcg Tab) 10,000 units PO QAM RAYRAY Stop: 12/06/20 08:59 Last Admin: 11/09/20 09:19 Dose: Not Given Documented by: PG Care Time/CCT Total # of Minutes Spent Total Time Spent with Patient: Total time spent is greater than 50% in coordination of care (as documented) at patient's floor/unit and/or counseling patient: Coding Level of Care Code 06394 Subseq Hosp Care Lvl 2 Diagnoses Left-sided low back pain with left-sided sciatica M54.42 Chronicity: acute Atrial tachycardia I47.1 Diabetes mellitus E11.9 Constipation K59.00 Osteoarthritis M19.90 DVT prophylaxis Z29.9 (1) Left-sided low back pain with left-sided sciatica Chronicity: acute Qualified Code(s): M54.42 - Lumbago with sciatica, left side
[2020-11-09] MEDS: ACETAMINOPHEN 500 MG TAB PO PRN ×2 (11:43→20:01)
--- NOTE | 2020-11-09 12:29 | Orthopedic Progress Note ---
Date of Service November 09, 2020 Assessment & Plan (1) Lumbar disc herniation with radiculopathy: Plan: At this time it appears she will be staying the remainder of the day. I will maintain the NAVA drain and have her discontinue in the morning. Hopefully she will be able to discharge home tomorrow. Admission and Anticipated Discharge Date Admission Date: November 05, 2020 Subjective Patient's back and left leg pain are markedly improved. Physical Exam Physical Exam: Patient is sitting in the chair at the bedside. Is good strength testing. Appears comfortable. Results & Data ([facility]) Vital Signs (Past 12 Hours) Vital Signs Temp Pulse Pulse Resp BP Pulse Ox 11/09/20 07:45 36.4 C L 85 20 156/92 H 97 11/09/20 07:15 70 11/09/20 03:12 36.4 C L 86 16 153/83 H 93 11/09/20 01:58 81 11/09/20 01:55 83
--- NOTE | 2020-11-09 15:29 | Electrocardiogram Report ---
Test Reason : Blood Pressure : / mmHG Vent. Rate : 109 BPM Atrial Rate : 109 BPM P-R Int : 186 ms QRS Dur : 078 ms QT Int : 350 ms P-R-T Axes : 059 072 103 degrees QTc Int : 471 ms Poor data quality, interpretation may be adversely affected Sinus tachycardia Premature ventricular complexes Nonspecific ST and T wave abnormality Abnormal ECG When compared with ECG of 06-NOV-2020 07:41, Vent. rate has increased BY 39 BPM Confirmed by Tyson Aguirre ([id number]) on 11/09/2020 3:28:37 PM Referred By: REFERRED SELF Confirmed By:Tyson Aguirre
--- NOTE | 2020-11-09 15:29 | Electrocardiogram Report ---
Test Reason : Blood Pressure : / mmHG Vent. Rate : 126 BPM Atrial Rate : 127 BPM P-R Int : 280 ms QRS Dur : 078 ms QT Int : 226 ms P-R-T Axes : 005 068 228 degrees QTc Int : 327 ms Sinus tachycardia with 1st degree A-V block Abnormal ECG When compared with ECG of 08-NOV-2020 16:05, (unconfirmed) Fusion complexes are no longer Present OH interval has increased T wave inversion now evident in Inferior leads T wave inversion now evident in Lateral leads Confirmed by Tyson Aguirre ([id number]) on 11/09/2020 3:28:52 PM Referred By: REFERRED SELF Confirmed By:Tyson Aguirre
[2020-11-09] MEDS: ADVANCED PROBIOTIC 1250 MG CAPSULE PO SCH (20:21)
[2020-11-10] MEDS: ACETAMINOPHEN 325 MG TAB PO PRN ×2 (04:19→11:37)
[2020-11-10] MEDS: POLYETHYLENE (MIRALAX) 17 GM PACK PO SCH ×2 (06:09→08:40)
[2020-11-10] MEDS ORDERED: bisacodyL 10 MG SUPP PR PRN (08:00)
[2020-11-10] MEDS: INSULIN ASPART 100 UNITS/ML 3 ML PEN SC SCH (08:38)
[2020-11-10] MEDS: MULTIVITAMIN TAB PO SCH (08:39)
[2020-11-10] MEDS: INSULIN GLARGINE SOLOSTAR 100 UNITS/ML 3 ML PEN SC SCH (08:39)
[2020-11-10] MEDS: CHOLECALCIFEROL 1,000 UNITS 25 MCG TAB PO SCH (08:40)
[2020-11-10] MEDS: DOCUSATE SODIUM/SENNA 50/8.6MG TAB PO SCH (08:40)
--- NOTE | 2020-11-10 10:40 | Discharge Summary ---
Date of Service November 10, 2020 Admission HPI Per Admitting Provider This patient is a 70-year-old female with a history of OA, vitamin D deficiency, obesity, Lyme disease, DM 2, hyperlipidemia, and lone atrial fibrillation, who presents to the ER with worsening left lower back pain with left lower extremity pain over the last week despite trials of pain meds and steroids as an outpatient. She tripped and fell in her kitchen 2 weeks ago and landed on her left hip and knee. Initially had some knee pain which then resolved but was followed by development of worsening left lower back pain radiating to the buttock. It is now radiating down into her left toes and periodically has nu mbness. She denies loss of bowel or bladder function, no weakness in the leg but it is difficult to ambulate due to pain. No fevers or chills. In the ER, she was given Toradol without improvement and then IV fentanyl with improvement but then pain returned. CT of the lumbar spine and pelvis was without fracture or other acute findings. She was given IV Dilaudid for severe pain. MRI was ordered due to intractable pain in the ER and she was found to have a large left-sided extruded disc herniation at the L3-4 level which extends inferiorly and fills the left lateral recess. This likely impinges on the left L4 nerve root. There is moderate spinal stenosis at this level. She was unable to ambulate in the ER. She will be admitted for intractable pain from lumbar HNP with radiculopathy and for orthopedic spine surgical evaluation. Principal Diagnosis Left sided back pain, radiculopathy from herniated disc at L4/L5 Discharge Exam Constitutional WD/WN, vitals as above (sleepy as she is just waking from anesthesia) Neck trachea midline, no thyromegaly Respiratory normal respiratory effort, lungs clear to auscultation Cardiovascular Rate/Rhythm: regular rate and regular rhythm Heart Sounds: normal S1 and normal S2; no murmur Vessels: normal peripheral pulses; no JVD Extremities: normal capillary refill; no edema Gastrointestinal (Abdomen) normal bowel sounds, soft, nontender, no hepatosplenomegaly Musculoskeletal no cyanosis or clubbing, extremities motor strength 5/5 Skin no rashes, warm and dry Neurologic patellar DTR's 2+ bilat, sensation intact and PERRL, EOMI, accommodation nl, no face palsy, no dysarthria Psychiatric A+Ox3, euthymic affect Discharge Data Allergies Allergy/AdvReac Type Severity Reaction Status Date / Time codeine Allergy Intermediate vomiting Verified 11/05/20 02:35 Sulfa (Sulfonamide Allergy Intermediate hives Verified 11/05/20 02:35 Antibiotics) tramadol AdvReac Intermediate NAUSEA/VOMI Unverified 11/08/20 20:05 TING Consultations 11/05/20 08:34 ED Decision to Admit Stat 11/05/20 10:11 Consult Orthopedic Surgery Routine Procedures Performed Operation Date: 11/08/20 14:15 Actual Procedures p L3-L4 Decompression (Not Applicable) - Ramo Mccullough, Ordered Studies 11/05/20 02:09 CT lumbar spine wo con Urgent CT pelvis wo con Urgent 11/05/20 06:02 MR lumbar spine wo con Stat 11/08/20 [place] lumbar spine 2-3V Routine Hospital Course (1) Left-sided low back pain with left-sided sciatica: Lumbar radiculopathy with HNP at L4-5 with impingement L4 nerve root with severe pain and numbness down left lower extremity - oxycodone 5 to 10 mg p.o. every 6 hours as needed for moderate to severe pain, IV Dilaudid as needed severe pain, Tylenol for mild to moderate pain -Orthopedic spine surgery consultation appreciated- 11/08/20: lumbar decompression with bilateral medial facetectomies L3-L4 and excision of herniated free fragment with Dr. Mccullough tolerated well vitals stable, Hb 14, no more radicular pain, just mild low back pain, NAVA drain in place - pulled prior to discharge rodríguez removed, voiding on her own ambulating in the [facility] for discharge per Dr. Mccullough, he provided instructions, will follow up with him in several weeks (2) Atrial tachycardia: new onset post op, HR in the 100-120 range, no chest pain/pressure EKG with atrial tachycardia, non specific TW changes but these were evident prior to surgery troponin < 0.015 observed on med tele, no further issues, resting HR is < 100 for two days (3) Diabetes mellitus: Hemoglobin A1c last checked in 10/2019 was 7.3%, but now is up to 8.7% She uses diet control at home but has recently gained more weight Blood sugar in the 160s on arrival and due to IV Decadron in ER, now improved on insulin Diabetic diet Accu-Cheks before every meal and at bedtime NovoLog supplemental insulin, started Lantus 5 units daily while here monitor closely for hypoglycemia, no issues patient will continue diet and exercise, try to lose weight provided with meter test strips and lancets to check her sugars once a day (4) Constipation: With a previous history of severe opioid-induced constipation now s/p numerous BMs on 11/06 after mag citrate -cont MiraLAX twice daily, senna/docusate twice daily while recovering, especially if she needs to take oxycodone (5) Osteoarthritis: Pain control as needed (6) DVT prophylaxis: SCDs Disposition- discharge to home Total Time Total Time Spent Total Time Spent (In Minutes): 32 minutes Discharge Plan Discharge Items Patient Disposition: Home - Self-Care Reason For Visit: LUMBAR RADICULOPATHY Discharge Diagnosis: Lumbar radiculopathy s/p decompression of L3/L4, removal of herniated disc Condition on Discharge: Good Goals: improve strength and mobility Activity: Per Instructions section Non-emergency contact: Primary Care Provider and Surgeon Call non-emergency contact if: you have any medication questions, your symptoms worsen, your pain is not controlled and you have a fever Follow-up/Referrals: Silas Hoff [Primary Care Provider] - (PCP visit scheduled prior to hospitalization. Will see PCP in [place] office.) Diet: Carb Consistent or DM2 Addtl Attending Provider Instructions: ACTIVITY RECOMMENDATIONS: SELF CARE INSTRUCTIONS AFTER A LAMINECTOMY 1. No prolonged sitting (less than 30 minutes for the first 3 weeks after surgery). 2. No bending, lifting more than 5 pounds, or twisting (roll like a log when turning in bed). 3. You may shower 3 days after surgery if no drainage from wound. Thoroughly dry wound. Do not soak in the tub. 4. Please walk as much as you can for exercise. Gradually increase the distance that you walk as your endurance increases. 5. You may drive in 7-10 days if you are comfortable and no longer requiring pain medications. SPECIAL CARE INSTRUCTIONS: VERY IMPORTANT TO READ AND REVIEW A. Your surgical incision has been closed with a cosmetic suture under the skin that will dissolve in about 6 weeks. In 14 days, you can use a pair of clean scissors and cut the suture that is left outside of the skin at the ends of your incision. B. Complications are uncommon, but please contact us if you have any signs or symptoms of: 1. wound infection (fever higher than 102.5 degrees F, redness, separation of wound, drainage, or increasing pain from the incision) 2. blood clots in legs (pain, swelling, redness and warmth in legs) 3. urinary tract infection (fever higher than 102.5 degrees, burning upon urination or increased frequency of urination) 4. nerve problems (inability to walk on your toes or heels, numbness, loss of bowel or bladder control) 5. any other symptoms that concern you. C. Please call the office at if you have any concerns or questions about your operation or recovery. MANAGING PAIN AFTER SPINAL SURGERY 1. Narcotic medication is intended for short-term use and will be provided for surgical pain. Surgical pain usually lasts for a period of 4-6 weeks. Narcotic medication includes Percocet, Vicodin, Darvocet, Tylenol #3 or Lortab. 2. Longer-term pain is more appropriately treated with non-narcotic medication such as Tylenol ES. 3. Muscle spasm is not appropriately treated with narcotics. Muscle relaxers such as Soma, Flexeril or Skelaxin can be used along with Tylenol ES. 4. Remember that we all live with some "aches and pains". This is not unusual or uncommon after an injury or as we get older. 5. We will provide appropriate medication within the normal guidelines of their prescribed use. We will also be very cautious and aware of potential abuse and extended duration of patients' medication needs. 6. Please allow 2-3 days to process refills. Prescriptions will not be mailed but must be picked up at the office. FOLLOW UP VISIT: Keep your scheduled follow-up appointment. Any questions, please call the office at . Pending Studies at Discharge: No Stand-Alone Forms: [employer], Smoking Cessation Medications and DC Order Prescriptions: New acetaminophen 325 mg Tablet 650 mg PO Q4H PRN (Reason: pain) 10 Days Qty: 60 RF: 0 polyethylene glycol 3350 [Miralax] 17 gram Powder In Packet 17 g PO BID 10 Days Qty: 14 RF: 0 oxycodone 5 mg Tablet 5 - 10 mg PO Q6H PRN (Reason: pain) 10 Days Qty: 30 RF: 0 (DME) OneTouch Verio test strips Strip See Rx Instructions .Route Qty: 50 RF: 1 (DME) lancets [OneTouch Delica Plus Lancet] 33 gauge misc See Rx Instructions .Route Qty: 100 RF: 1 Continued multivitamin Capsule 1 cap PO QAM RF: 0 cholecalciferol (vitamin D3) [Vitamin D3] 125 mcg (5,000 unit) Tablet 250 mcg PO QAM RF: 0 Probiotic 3 billion cell Capsule 3,000 mmu cells PO HS RF: 0 sennosides-docusate sodium [Senokot-S] 8.6-50 mg tablet 2 tab-cap PO BID PRN (Reason: constipation) Qty: 60 RF: 1 Discontinued oxycodone 5 mg Tablet 5 - 10 mg PO Q6H MDD 6 TABS/24H PRN (Reason: pain) Qty: 30 RF: 0 Discharge Orders: Discharge Order (Routine); Ordered 11/10/20 Ordered By: Yoan Maharaj/Other Patient Handouts: A1C, Managing Type 2 Diabetes Admission Data Admit Date/Time: 11/05/20 10:11 Attending Provider: Yoan Orantes Admit Provider: Aditi Cramer Primary Care Provider: Silas Hoff Other Providers: Tommy Villalobos Gregory M Other Interventions: Discharge Summary Assessment (RN) Last Done: 11/10/20 11:05 Coding Level of Care Code D/C DAY MANAGEMENT >30 MINS Diagnoses Left-sided low back pain with left-sided sciatica M54.42 Chronicity: acute Atrial tachycardia I47.1 Diabetes mellitus E11.9 Constipation K59.00 Osteoarthritis M19.90 DVT prophylaxis Z29.9
--- NOTE | 2020-11-10 12:19 | Orthopedic Progress Note ---
Date of Service November 10, 2020 Assessment & Plan (1) Lumbar disc herniation with radiculopathy: Plan: This time we will continue physical therapy we will discontinue her dressing and drain today. She is most likely going home today. She will follow-up in 2 weeks. Admission and Anticipated Discharge Date Admission Date: November 05, 2020 Subjective Patient's back pain is controlled leg symptoms markedly improved Physical Exam Physical Exam: Patient is sitting in the chair at the bedside. She has good cuff strength testing. She is comfortable. Results & Data ([facility]) Vital Signs (Past 12 Hours) Vital Signs Temp Pulse Resp BP BP Pulse Ox 11/10/20 11:05 37 C 100 H 18 152/88 H 141/85 H 96 11/10/20 06:44 37 C 100 H 18 152/88 H 96
== END 2020-11-10 12:29 | disposition home or self-care (01) | DRG 516 ==
LOC: ED 01:48 → 3N 10:11 → SUATTDRO 10:11 → 3N 17:05 → 2N 11-08 18:05 → 2W 11-08 20:07